=== PATIENT | female | born 1995 | race Caucasian/White ===

== ENCOUNTER 2017-11-02 16:52 | Emergency (ER) | payer BC, SELFPAY ==
[2017-11-02 16:54] VITALS: BP 120/74; PULSE 98; RESP 16; TEMP 36.4; O2SAT 98; BMI 34.3
--- NOTE | 2017-11-02 18:22 | NURSING ---
NO OLD EKGS
[2017-11-02 19:17] VITALS: PULSE 88; RESP 16; O2SAT 98
--- NOTE | 2017-11-02 19:38 | EKG12_ITS ---
Test Reason : CP Blood Pressure : / mmHG Vent. Rate : 085 BPM Atrial Rate : 085 BPM P-R Int : 150 ms QRS Dur : 078 ms QT Int : 348 ms P-R-T Axes : 034 050 006 degrees QTc Int : 414 ms Normal sinus rhythm Normal ECG Confirmed by JUN ROSENBERG MD ([id number]), subeditor MIGUELANGEL REESE ([id number] on 11/03/2017 1:33:41 PM Referred By: SILAS Confirmed By:JUN ROSENBERG MD
--- NOTE | 2017-11-02 19:45 | RAD_ITS ---
STUDY: X-RAY CHEST REASON FOR EXAM: Female, 22 years old. Chest pain TECHNIQUE: Frontal view of the chest COMPARISON: None. FINDINGS: The lungs are clear. There are no pleural effusions. There is no pneumothorax. The heart is normal in size. The visualized osseous structures are within normal limits. RAD/Chest 1 View (Portable) IMPRESSION: No acute thoracic pathology. Electronically Signed: Tan Yoder, at 20:34 EDT Tel , Service support ,
[2017-11-02 19:58] VITALS: O2SAT 96
[2017-11-02 20:40] LABS: Absolute Neutrophil Count 7.2 X10^3/uL (2.0-7.7); Basophil# 0.03 X10^3/uL; Basophil% 0.3 % (0-1); Eosinophil# 0.13 X10^3/uL; Eosinophils% 1.2 % (0-5); Hematocrit 43.1 % (37-47); Hemoglobin 14.2 g/dl (12.0-15.0); Lymphocyte % 27.4 % (19-41); Mean Corp Hgb Conc 32.9 g/gl (32-36); Mean Corpuscular Hgb 28.8 pg (27.0-32.0); Mean Corpuscular Volume 87.4 fL (81-99); Mean Platelet Vol. 9.6 fl (6.2-12.0); Monocyte# 0.79 X10^3/uL; Neutrophil # 7.24 X10^3/uL (2.7-7.7); Platelet Count 324 K/mm3 (150-450); RBC Distribution Width CV 13.7 % (11.6-14.6); RBC Distribution Width SD 43.2 fl (35.1-43.9); Red Blood Count 4.93 M/mm3 (4.2-5.4); White Blood Count 11.3 K/mm3 (4.4-11.0)
[2017-11-02 20:42] LABS: POSITIVE COUNT NO; POSITIVE DIFFERENTIAL NO; POSITIVE MORPHOLOGY NO
[2017-11-02 20:53] LABS: Anion Gap 9 (5-15); BUN 12 mg/dL (7-18); BUN/Creat Ratio 12.8 RATIO (10-20); Calcium,Total 9.6 mg/dL (8.5-10.1); Chloride 103 mmol/L (98-107); Creatinine, Serum 0.94 mg/dL (0.55-1.02); EST Glomerular Filtration Rate 78 mL/min (>60); Est Glom Filt Rate - Afr Amer 94 mL/min (>60); Estimated Creatinine Clearance 76.34 ml/min; Glucose 86 mg/dL (74-106); Potassium 3.9 mmol/L (3.5-5.1); Sodium Level 140 mmol/L (136-145)
[2017-11-02 21:23] VITALS: PULSE 100; RESP 16; O2SAT 97
[2017-11-02 21:37] VITALS: BP 126/78; PULSE 93; RESP 16; O2SAT 98
--- NOTE | 2017-11-02 21:37 | ED.VISSUMM ---
- ER Visit Summary Date of Service: 11/02/17 Chief Complaint: Chest pain History of Present Illness: The patient is a 22 F presenting with chest pain. She states that this started earlier today. Pain has been continuous. It is in her mid chest. It is associated shortness of breath. She denies fever or cough. She has a history of bipolar and ADHD. A week ago her Lexapro was tapered down and she was started on risperidone. She denies any difficulty breathing or swallowing. She denies rash. Denies other complaints. Physical Examination: Vitals are stable. Patient is afebrile. Alert no acute distress. HEENT exam is unremarkable. Neck is supple. Lungs are clear and equal bilaterally. Chest wall tenderness with no crepitus. Heart is regular rate and rhythm. Abdomen is soft nontender nondistended. Extremities are unremarkable. Skin is warm and dry. No focal neurologic deficit. Remainder of exam is unremarkable. Emergency Department Course and Treatment: EKG is sinus rate of 85 with no acute ischemic changes. Chest x-ray shows no acute process. CBC, chemistries unremarkable. Troponin is negative. Patient given Toradol IV with improvement. She is advised to follow-up with her primary care physician. Advised return to ED for worsening complaints. Disposition: Discharge home Impression: Chest wall pain This note was generated with Vyyo dictation software. It may contain incorrect words, spelling, and punctuation that were not noted in review of the chart prior to signing ED Disposition - Plan for ED Patient: Chief Complaint: Shortness of Breath Referrals: Otoniel Nation DO [Primary Care Provider] -
--- NOTE | 2017-11-02 21:39 | ED.DEP ---
ED Disposition - Plan for ED Patient: Chief Complaint: Shortness of Breath Instructions: ED Chest Pain Atypical Unkn Cause Referrals: Otoniel Nation DO [Primary Care Provider] -
== END 2017-11-02 21:46 | disposition home or self-care (01) ==
PROVIDERS: Emergency Provider Emergency Medicine; Family Provider Pediatrics; PCP Pediatrics
DX: R07.89 Other chest pain (principal); F31.9 Bipolar disorder, unspecified; F90.9 Attention-deficit hyperactivity disorder, unspecified type
CPT/HCPCS: 71045; 80048; 84484; 85025; 93005; 99284

== ENCOUNTER → 2018-06-16 09:22 | Outpatient (CLI) | payer BC, SELFPAY ==
--- NOTE | 2018-06-16 09:26 | US_ITS ---
STUDY: ULTRASOUND BREAST - RIGHT REASON FOR EXAM: Female, 22 years old. Right lower outer quadrant lump. TECHNIQUE: Axial and longitudinal images of the RIGHT breast were performed with a high resolution ultrasound transducer. COMPARISON: None. FINDINGS: RIGHT Breast: In the right lower-outer quadrant was sonographically evaluated utilizing various imaging planes. There is no sonographically evident discrete mass, cyst or nodule. There is no fluid collection. IMPRESSION: No sonographically evident abnormality. ASSESSMENT CATEGORY: BIRADS Category 1: Negative. A letter regarding these results will be sent to the patient by the facility within 30 days. Electronically Signed: Olivier Rendon MD at 11:51 EDT , Service support , STUDY: ULTRASOUND BREAST - LEFT REASON FOR EXAM: Female, 22 years old. Bilateral breast lumps in the right lower outer quadrant and left upper outer quadrant. TECHNIQUE: Axial and longitudinal images of the LEFT breast were performed with a high resolution ultrasound transducer. COMPARISON: None. FINDINGS: LEFT Breast: There is a reniform, 0.8 x 0.5 x 0.3 cm hypoechoic focus with hyperechoic central region in the 2:00 position located 8 cm from the nipple. There is no posterior enhancement. There is no posterior shadowing. There appears to be a mild delay vascular echogenic/fatty hilum. This finding is therefore most compatible with an intramammary lymph node. US/Breast Limited Unilateral IMPRESSION: 0.8 cm maximum dimension finding in the 2:00 position left upper outer quadrant most compatible with typically benign appearing intramammary lymph node. ASSESSMENT CATEGORY: BIRADS Category 2: Benign. A letter regarding these results will be sent to the patient by the facility within 30 days. Electronically Signed: Olivier Rendon MD at 11:49 EDT , Service support ,
== END ==
DX: N63.21 Unspecified lump in the left breast, upper outer quadrant (principal); N63.13 Unspecified lump in the right breast, lower outer quadrant
CPT/HCPCS: 76642

== ENCOUNTER → 2019-01-05 10:21 | Outpatient (CLI) | payer BC, SELFPAY ==
--- NOTE | 2019-01-05 17:28 | NEURO ---
NCS and/or EMG Patient Report HPI: Patient is a 23-year-old female who presented with the pain and numbness in both hands, mostly in the fingertips of the fourth and fifth digits. 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 Patient since that time, has been experiencing pain and numbness as well as tingling in her hands and fingertips. This has been going on for last 4 months. Patient has no history of diabetes or neck injury. Physical Exam: Tenderness of both wrist joints noted. Tinel sign slightly positive at both wrists. Slightly decreased sensation to light touch in both hand fingers noted. Findings: 1. Normal nerve conduction studies of right and left median sensory and motor nerves. 2. Normal nerve conduction studies of right and left ulnar sensory and motor nerves. 3. Normal needle examination of the bilateral upper extremities. Impression: Normal nerve conduction studies and EMG of bilateral upper extremities. Recommendation: Clinical correlation and appropriate work-up is recommended
== END ==
DX: M25.531 Pain in right wrist (principal); M25.532 Pain in left wrist
CPT/HCPCS: 95886; 95910

== ENCOUNTER 2019-02-22 16:27 | Outpatient (RCR) | payer BC, SELFPAY ==
--- NOTE | 2019-02-22 18:08 | HP.OTEVAL ---
Patient's Visit Information AMBER WALTERS is a 23 year old F, referred to Occupational Therapy by YOSEPH Arroyo, with a diagnosis of B Carpal Tunnel Syndrome. Date of Evaluation: 02/22/19 Occupational Therapist: Chari Alcocer, MAURICE/Praneeth - Subjective Subjective: Amber Love' noted that she works at the [employer] and noted symptoms of pain started last year prior to . She has been dealing with symptoms for over a year and is very active with use of B UE for joey, arts including ceramics, craving, and painting, and general demands of everyday life. She noted that she did get Nerve Conduction test completed 2018. She noted nerve conduction showed carpal tunnel syndrome. - ADLs Dressing: Bra, Button shirt, Pants, Socks, Shoes Fasteners: Tie shoes, Buttons, Dysart Eating: Bring food to mouth, Use silverware, Cut food Bathing: Handle washcloth & soap, Squeeze shampoo bottle Toileting: Manage clothing Kitchen: Chop with knife, Peel fruits & vegetables, Open jars, Open bottle caps, Lift gallon of milk, Lift saucepan Miscellaneous: Write, Use hand tools, Use power tools, Play musical instrument, Do crafts, Sew, Jami/knit/needlework Comments: also completes pottery, painting, wood craving, and other crafts. Comments: She is R hand dominant. She noted B CTS. - Pain B wrists 4 Pain Intensity Range: 2, 8 - ROM Wrist: flex R 0-80 , L 0-75 ; ext R 0-44 , L 0-46 CMC: WFL MP: WFL IP: WFL Radial Abduction: WFL Palmar Abduction: WFL MP: WFL PIP: WFL DIP: WFL - Strength Data Virtualization Consultant: FLEXED r 71, l 50; EXT r 56, l 51 Lateral Pinch: R 16, L 17 Tripod Pinch: R 15, L 11 Tip-to-Tip Pinch: R 9, L 6 - Sensation Thumb: R 2.83, L 2.83 Index: R 2.83, L 2.83 Middle: R 2.83, L 2.83 Ring: R 2.83, L 2.83 Little: R 2.83, L 2.83 - Nine Hole Peg Right: 22.93 s Left: 32.48 s - Special Tests Tinel's: positive - Quick DASH-Disab of Arm,Shoulder& Hand Quick DASH Score: 43.3325 - Hand/Wrist Evaluation Total Score of Pain & Functional Sections: 33 - Goals Goal:: Bev to increased B patient registration specialist strength by 10-15 lbs to promote increased strength and stability of B hands needed for ADL/IADls 4/5 trials 80% of the time by d/c. Goal:: Bev to exhibit ability to complete pain management techniques for B wrists to manage systoms of pain and carpal tunnel 4/5 trials 80% of the time by d/c. Goal:: Bev to be mod I to completed correct ergonomic placement of hands and wrists during work and joey tasks to promote increased particpation with leisure pursuits and decreased pain symptoms 4/5 trials 80% of the time by d/c. Goal:: Bev to be (I) to complete daily HEP to promote strength, stability, and decreased inflammation of wrists to promote ability to return to PLOF 4/5 trials 80% of the time by d/c. - Rehabilitation General Assessment: Bev completed OT evaluation on this date of 02/22/19. Symptoms first started a year ago. She has increased symptoms post work day and noted also plays computer games. Patient reports having had nerve conduction test completed and results confirmed carpal tunnel syndrome. She does exhibit positive tinels but is hypermobile at the wrist area and would benefit from skilled OT services for strength, stability, pain management, and ergonomic training to decreased symptoms and return to PLOF for ADL/IADls. Rehabilitation Potential: Good - Anticipated Interventions Anticipated Interventions: A/AAROM/PROM, Strengthening, Edema Control, Scar Care, Modalities, Orthoses, Joint Protection/Energy Conservation, Ergonomic Education, Fine Motor Coord/Domenic, ADL Training, Caregiver Training, Home Program - Visit Plan Frequency: 2x /Week Duration: 4 Weeks General Plan: OT to work on strength,stability, ergonomic and positioning, and general ability to return to PLOF with B wrists and hands to promote particpation in ADL/IADLs by d/c. TEXT: Thank you for the opportunity to evaluate your patient. For Medicare and Medicare HMO plans, please review the plan of care and approve it. It will need to be FAXED BACK to us at [phone] for Medicare purposes. Please let me know if there are questions or concerns regarding this plan of care. Physician Signature: Date:
--- NOTE | 2019-04-12 17:28 | HP.OT.NRP ---
HP - Discharge Summary - Patient Information AMBER WALTERS was seen in my office for initial evaluation on 02/22/19. The following Plan of Care was established for this patient: Initial Frequency: 2x /Week Initial Duration: 4 Weeks - Anticipated Interventions Anticipated Interventions: A/AAROM/PROM, Strengthening, Edema Control, Scar Care, Modalities, Orthoses, Joint Protection/Energy Conservation, Ergonomic Education, Fine Motor Coord/Domenic, ADL Training, Caregiver Training, Home Program This patient was last seen in our office 02/22/19. Pertinent comments regarding their Occupational therapy will appear below: Attended evaluation only and did not attend further scheduled appointments. She will be discharged at this time. At this point I will be discontinuing this patient from occupational therapy. I would be happy to see this patient again in the future if found appropriate by the physician. Thank you! Chari Alcocer, OTR/L
== END 2019-02-22 19:00 | disposition home or self-care (01) ==
LOC: OT 16:27
PROVIDERS: Referring Provider Nurse Practitioner Family; Visit Provider Nurse Practitioner Family
DX: M25.532 Pain in left wrist (principal); M25.531 Pain in right wrist
CPT/HCPCS: 97110; 97166

== ENCOUNTER → 2020-03-05 07:58 | Outpatient (CLI) | payer MEDICAID, SELFPAY ==
--- NOTE | 2020-03-05 08:02 | ECHOD_ITS ---
Reason For Study: CP Procedure This was a 2D Doppler, Color Flow transthoracic echocardiogram. The study was technically difficult. Exam performed in department. Left Ventricle Normal LV size. Left ventricular systolic function is normal. The estimated ejection fraction is 55 %. Normal diastology for age. No regional wall motion abnormalities noted. Right Ventricle Normal RV size. Normal systolic function. Atria Normal left atrium. Normal right atrium. Mitral Valve Normal mitral valve. Tricuspid Valve Normal tricuspid valve. Aortic Valve Normal aortic valve. Trisinus/trileaflet aortic valve. Pulmonic Valve Normal pulmonic valve. Great Vessels Normal aortic root. The pulmonary artery is normal size. Normal inferior vena cava. Pericardium/Pleural No pericardial effusion. MMode/2D Measurements & Calculations LVIDd: 3.9 cm IVSd: 0.83 cm LA dimension: 2.6 cm LVIDs: 2.7 cm LVPWd: 0.81 cm FS: 31.0 % LAV(MOD-bp): 25.0 ml LA A4 area: 10.5 cm2 RA A4 area: 10.1 cm2 LAV(MOD-bp) Indexed: 14.0 ml/m2 LAV(MOD-sp2): 26.0 ml LAV(MOD-sp4): 21.0 ml Time Measurements MV dec time: 0.19 sec Doppler Measurements & Calculations MV E max riley: 84.9 cm/sec Lat Peak E' Riley: 13.8 cm/sec Med Peak E' Riley: 13.0 cm/sec MV A max riley: 57.4 cm/sec E/E' lat: 6.1 E/E' med: 6.5 MV E/A: 1.5 MV V2 max: 91.2 cm/sec MV P1/2t max riley: 91.9 cm/sec Ao V2 max: 113.8 cm/sec MV max P.3 mmHg MV P1/2t: 59.0 msec Ao max P.2 mmHg MV V2 mean: 53.2 cm/sec MV dec slope: 456.3 cm/sec2 MV mean P.4 mmHg MVA(P1/2t): 3.7 cm2 MV V2 VTI: 19.2 cm LV V1 max: 100.0 cm/sec PA V2 max: 87.6 cm/sec LV V1 max P.0 mmHg Interpretation Summary Normal LV size. Left ventricular systolic function is normal. The estimated ejection fraction is 55 %. Normal diastology for age. Structurally normal valves. Ordering Physician: Anderson Recinos Referring Physician: Anderson Recinos Performed By: Nolan Leung RCS
== END ==
PROVIDERS: Referring Provider Family Medicine; Visit Provider Family Medicine
DX: R07.9 Chest pain, unspecified (principal)
CPT/HCPCS: 93306

== ENCOUNTER 2020-06-12 06:32 | Outpatient (RCR) | payer MEDICAID, SELFPAY | END 2020-07-22 23:59 | LOC: IMMUN 06:32 | PROVIDERS: Referring Provider Family Medicine; Visit Provider Family Medicine | DX: Z23 Encounter for immunization (principal) | CPT/HCPCS: 0001A; 0002A; 91300 ==

== ENCOUNTER 2022-09-03 15:07 | Emergency (ER) | payer MEDICAID, SELFPAY ==
[2022-09-03] VITALS (8 sets, daily range): BP systolic 95–126; BP diastolic 58–97; PULSE 69–94; RESP 16–20; TEMP 36.1–36.6; O2SAT 98–100; BMI 33.9
--- NOTE | 2022-09-03 15:22 | ED.VIS.FALL ---
HPI HPI - Fall History of Present Illness Chief Complaint: Fall Informant: patient and parent Occured/Mechanism Occurred: Today and Hours Usually ambulates: Without assistance Pain/Injury Pain Location: lower extremity Quality of Pain: Sharp and Stabbing Maximum Severity: Moderate Associated Symptoms Associated Symptoms: Positive for Loss of function and Inability to ambulate; Negative for Parasthesias, Weakness, Loss of consciousness or Amnesia Narrative Narrative: 26-year-old female tripped on the last 2 steps at home when her basement. Landed awkwardly on her left ankle injuring it. Believes it is broken may be dislocated. Denies any other complaints. No LOC. No recent illness or hospitalization. No prior surgery to this ankle. Prior similar symptoms: No Recent Illness/Hospitalization: No PFSH PFSH Medical History ADHD GERD (gastroesophageal reflux disease) Home Medications bupropion HCl 300 mg 24 hr tablet, extended release 300 mg PO DAILY 11/02/17 [History Last Taken Unknown] risperidone 0.25 mg tablet (Risperdal) 0.25 mg PO TID 11/02/17 [History Last Taken Unknown] hydrocodone-acetaminophen 5-325mg 5mg-325mg 1 tab PO Q4H PRN PRN Pain 5 days #20 TABLETS 09/03/22 [Rx Last Taken Unknown] Allergy/AdvReac Type Severity Reaction Status Date / Time No Known Allergies Allergy Verified 11/02/17 16:53 Social History Smoking Status: Never smoker ROS ROS ED ROS Narrative Denies recent illness Review of Systems ROS Unobtainable: Denies due to encephalopathy Constitutional Constitutional ED: Denies chills or fever(s) Eyes Eyes: Denies blurry vision ENT ENT ED: Denies ear pain Cardiovascular Cardiovascular: Denies chest pain Respiratory/Chest Respiratory/Chest: Denies cough Gastrointestinal Gastrointestinal: Denies abdominal pain Genitourinary Genitourinary ED: Denies dysuria Musculoskeletal Musculoskeletal: Denies arthralgias Integumentary Denies abscess Neurologic Neurologic: Denies headache(s) Psychiatric Psychiatric: Denies anxiety Endocrine Endocrinology: Denies polydipsia Hematologic/Lymphatic Hematologic/Lymphatic: Denies easy bleeding Allergic/Immunologic Allergic/Immunologic ED: Denies mouth swelling EXAM Physical Exam Narrative Exam Narrative: 18-year-old female sitting upright in bed. Mom present in room. Vital signs stable afebrile. HEENT exam unremarkable atraumatic. Pupils round reactive light. Nontender. C-spine back nontender. Trachea midline. Lungs clear to auscultation bilaterally. Heart regular rhythm no murmur. Chest wall and ribs nontender. Abdomen soft nontender. Pelvic girdle intact. Moving all 4 extremities. Left ankle is in an air brace by the paramedics. Appears to be deformed. Tender. DP pulse intact. Able to wiggle her toes. Mild abrasion to her anterior aspect of her left ankle. No laceration. Proximal tib-fib, knee, thigh and hip are nontender. Right lower leg is nontender upper extremities are unremarkable. Neurologically she is awake and alert. No focal motor deficits. Left ankle has normal touch sensation. DP pulse. Const Vital Signs: 09/03/22 15:09 09/03/22 15:11 09/03/22 18:59 Temperature 97 F L Temperature Source Temporal Pulse Rate 94 80 Pulse Rate [1 (Initial Baseline)] Pulse Rate [3] Respiratory Rate 18 18 Respiratory Rate [1 (Initial Baseline)] Respiratory Rate [3] Respiratory Effort Normal Non-Labored Blood Pressure 113/78 126/76 H Blood Pressure [1 (Initial Baseline)] Blood Pressure [3] Blood Pressure Mean 89 92 Pulse Ox 99 100 Oxygen Delivery Method Room Air Room Air Room Air Oxygen Delivery Method [1 (Initial Baseline)] Oxygen Delivery Method [3] Oxygen Flow Rate (L/min) [1 (Initial Baseline)] Oxygen Flow Rate (L/min) [3] 09/03/22 19:42 09/03/22 19:59 Temperature 98 F Temperature Source Pulse Rate 77 Pulse Rate [1 (Initial Baseline)] 90 Pulse Rate [3] 74 Respiratory Rate 16 Respiratory Rate [1 (Initial Baseline)] 16 Respiratory Rate [3] 20 H Respiratory Effort Blood Pressure 112/97 H Blood Pressure [1 (Initial Baseline)] 117/71 Blood Pressure [3] 119/74 Blood Pressure Mean Pulse Ox 100 Oxygen Delivery Method Room Air Oxygen Delivery Method [1 (Initial Baseline)] Nasal Cannula Oxygen Delivery Method [3] Nasal Cannula Oxygen Flow Rate (L/min) [1 (Initial Baseline)] 2 Oxygen Flow Rate (L/min) [3] 99 Positive well nourished and well developed; Negative for cachectic, contractures or unkempt General Appearance ED: well developed and NAD; Negative for unkempt, cachectic or contractures Nutritional Appearance: Negative for cachectic HEENT Reports normocephalic atraumatic; Negative for trauma or contusion Eyes PERRL and EOMs intact bilaterally General Eye ED: Negative for pale conjunctiva or scleral icterus Neck full ROM, no lymphadenopathy and supple General: Negative for tenderness Chest Wall inspection of chest normal and palpation of chest normal Resp normal respiratory effort, no retractions and clear to auscultation bilaterally Effort and Inspection: Negative for pain with movement Auscultation: Negative for rales, rhonchi or wheezes Cardio regular rate, regular rhythm, S1 normal heart sound, S2 normal heart sound and no murmurs Rate: Negative for bradycardia or tachycardic Rhythm: Negative for abnormal rhythm Bruits: Negative for other GI non-tender, non-distended and no masses Inspection: Negative for abdominal distention Auscultation: normoactive bowel sounds Palpation: soft; Negative for guarding Back/Spine no CVA tenderness General Back: Negative for CVA tenderness Cervical Spine: Negative for cervical spine tenderness Thoracic Spine / Upper Back: Negative for ROM limited Lumbar Spine / Lower Back: Negative for lumbar spinal tenderness Neuro oriented x3, CN's II-XII intact bilaterally, moves all extremities and no focal motor deficits Sensorium / Orientation: alert, oriented to person and oriented to place; Negative for oriented to time, orientation impaired, confused, lethargic or stuporous Motor Exam: strength 5/5 throughout Psych mental status grossly normal and thought process normal Appearance: Negative for unkempt Attitude: No agitated Mood & Affect: Negative for depressed, anxious or tearful Skin General Skin Exam: Negative for other Lesions: no lesions Rashes: no rashes Trauma: Negative for abrasion or laceration MDM MDM MDM Narrative Medical decision making narrative: 26-year-old tripped and fell down last 2 steps most likely has a left ankle it is fractured and dislocated. X-rays being obtained. IV will be inserted at this time she does not want any pain meds but was offered. Initially patient did not want any medication but then she was having more discomfort was treated with IV morphine and Zofran. History & Record Review Discussion w/independent historian: Patient and Family Radiography Diagnostic Testing: Clinical Impression(s) from Imaging Studies Ankle X-Ray 09/03/22 15:35 IMPRESSION: There is soft tissue swelling. Comminuted oblique fracture of the distal fibula. Question fracture of the posterior malleoli vs projection of the distal fibula fracture over the distal tibia causing this appearance. Medial dislocation of the articulation of the ankle mortise. Electronically Signed: Alvin Riojas MD at 16:13 EDT Reading Location ID and State: [facility] / [place] , Service support , Left ankle x-ray, 3 views, interpreted by myself and the radiologist shows a distal comminuted fibula fracture. Cannot totally rule out a posterior tibia fracture. Disruption of the ankle mortise consistent with dislocation. Interpreted also by the radiologist who agrees. Procedures Lower Extremity Splints Lower Extremity Splint: Orthoglass Splint Fabrication: Fabricated Location: Left Procedural Sedation Left ankle fracture or dislocation. Procedural sedation:: Consent Signed: Yes Any Problems With Anesthesia: No You/Your family experience fever (hyperthermia) w/anesthesia: No Sedation medication: Propofol Dose: 70 Route: IV Total Moderate Sedation Units: 5 Maliampati Score: Class II ASA Classification: I Comment:: Patient had a left ankle fracture dislocation. The ankle mortise was disrupted. She was given a total of 70 of propofol. Manually reduced. Using traction. Placed in a posterior Ortho-Glass well-padded splint. Patient tolerated procedure well. Woke up in 5 minutes. She is being observed post sedation. Post reduction x-ray being obtained. Most recent reduction x-ray of the ankle mortise looks better. There does appear to be a posterior tibial fracture also with a comminuted distal fibula fracture. Discharge Plan Triage Chief Complaint: Fall ED Provider: Anil Kumari Dx/Rx/DC Orders Clinical Impression: Ankle fracture Instructions: ED Ankle Fracture Prescriptions: New hydrocodone-acetaminophen 5-325 mg tablet 1 tab PO Q4H PRN PRN (Reason: Pain) 5 Days Qty: 20 0RF No Action risperidone [Risperdal] 0.25 MG tablet 0.25 mg PO TID bupropion HCl 300 MG tablet extended release 24 hr 300 mg PO DAILY [facility] Referrals: Deng Recinos MD [Med Staff - Active Staff] - As soon as possible [facility] Lees [Primary Care Provider] - Activity Restrictions/Additional Instructions: You had a broken distal fibula and posterior tibia fracture. Plus your ankle was mildly dislocated. No weightbearing. Crutches. No weight on the splint. Keep it dry and clean. Do not get it dirty or wet. Ice and elevate to decrease pain and swelling. Motrin for pain and swelling. Hasty for more severe pain. Do not drink or drive while using the Hasty. Call and follow-up with the orthopedic doctor Deng Recinos or an orthopedic physician of your choice as soon as possible. They need to reevaluate this to determine if they can treated with a cast, surgery or a walking boot. Disposition Disposition: Home, Self Care
--- NOTE | 2022-09-03 15:35 | RAD_ITS ---
STUDY: XR Ankle Min 3 Views REASON FOR EXAM: Female, 26 years old. ANKLE PAIN TECHNIQUE: XR Ankle Min 3 Views LEFT COMPARISON: None. FINDINGS: Normal visualized distal tibia . Comminuted oblique fracture of the distal fibula. Question fracture of the posterior malleoli vs projection of the distal fibula fracture over the distal tibia causing this appearance. Medial dislocation of the articulation of the ankle mortise. The visualized subtalar, talonavicular, calcaneocuboid and tarsal articulations are normal. Normal talus, calcaneus, and tarsal bones. There is soft tissue swelling around the ankle. RAD/Ankle min 3 Views IMPRESSION: There is soft tissue swelling. Comminuted oblique fracture of the distal fibula. Question fracture of the posterior malleoli vs projection of the distal fibula fracture over the distal tibia causing this appearance. Medial dislocation of the articulation of the ankle mortise. Electronically Signed: Alvin Riojas MD at 16:13 EDT ,
[2022-09-03] MEDS: Ondansetron 4 MG/2 ML Vial IV (17:09)
[2022-09-03] MEDS: morphine 8 MG/ML Syringe IV (17:10)
[2022-09-03] MEDS: Propofol 200 MG/20 ML Vial 60 MG IV BOLUS (20:12)
--- NOTE | 2022-09-03 20:55 | RAD_ITS ---
STUDY: XR Ankle Min 3 Views REASON FOR EXAM: Female, 26 years old. Notes post reduction left ankle fracture TECHNIQUE: XR Ankle 3 Views LEFT COMPARISON: study done earlier FINDINGS: Fiberglass splint in place. Comminuted oblique fracture of the distal fibula. There is a fracture of the posterior malleolus. Reduction of the dislocation of the ankle mortise. The visualized subtalar, talonavicular, calcaneocuboid and tarsal articulations are normal. Normal talus, calcaneus, and tarsal bones. There is soft tissue swelling around the ankle. RAD/Ankle min 3 Views IMPRESSION: There is soft tissue swelling. Comminuted oblique fracture of the distal fibula fragments have increased in displacement. Stable displaced fracture of the posterior malleolus. Successful reduction. Electronically Signed: Alvin Riojas MD at 21:11 EDT ,
== END 2022-09-03 21:58 | disposition home or self-care (01) ==
PROVIDERS: Emergency Provider Emergency Medicine; Visit Provider Emergency Medicine
DX: S82.892A Other fracture of left lower leg, initial encounter for closed fracture (principal); W19.XXXA Unspecified fall, initial encounter
CPT/HCPCS: 73610; 96374; 96375; 99285; J7030; A4216; J2405

== ENCOUNTER → 2022-09-08 | Outpatient (CLI) | payer MEDICAID, SELFPAY ==
[2022-09-08 11:24] LABS: Absolute Lymphocyte Count 2.03 X10^3/uL (0.83-4.51); Absolute Neutrophil Count 6.7 X10^3/uL (2.0-7.7); Basophil# 0.04 X10^3/uL; Basophil% 0.4 % (0-1); Eosinophil# 0.13 X10^3/uL; Eosinophils% 1.4 % (0-5); Hematocrit 41.4 % (37-47); Hemoglobin 13.6 g/dL (12.0-15.0); Lymphocyte # 2.03 X10^3/ul (0.83-4.51); Lymphocyte % 21.2 % (19-41); Mean Corp Hgb Conc 32.9 g/dL (32-36); Mean Corpuscular Hgb 29.1 pg (27.0-32.0); Mean Corpuscular Volume 88.5 fL (81-99); Mean Platelet Vol. 9.5 fl (6.2-12.0); Monocyte# 0.63 X10^3/uL; Monocyte% 6.6 % (0-10); NRBC Flagged by Analyzer 0 % (0-5); Neutrophil # 6.69 X10^3/uL (2.7-7.7); Neutrophil % 69.9 % (47-70); Platelet Count 329 K/mm3 (150-450); RBC Distribution Width SD 42.4 fl (35.1-43.9); Red Blood Count 4.68 M/mm3 (4.2-5.4); White Blood Count 9.6 K/mm3 (4.4-11.0)
[2022-09-08 12:11] LABS: ALB/GLOB Ratio 1.1 RATIO (0.9-2.4); AST(SGOT) 25 U/L (15-37); Alanine Aminotransfer ALT/SGPT 107 U/L (13-56); Alkaline Phosphatase 122 U/L (45-117); Anion Gap 4 (5-15); BUN 10 mg/dL (7-18); BUN/Creat Ratio 10.5 RATIO (10-20); Calcium,Total 9.2 mg/dL (8.5-10.1); Chloride 109 mmol/L (98-107); Creatinine, Serum 0.95 mg/dL (0.55-1.02); EST Glomerular Filtration Rate 74 mL/min (>60); Est Glom Filt Rate - Afr Amer 90 mL/min (>60); Globulin 3.7 g/dL (2.2-4.2); Glucose 83 mg/dL (74-106); Potassium 3.9 mmol/L (3.5-5.1); Protein, Total 7.7 g/dL (6.4-8.2); Sodium Level 141 mmol/L (136-145)
== END | disposition home or self-care (01) ==
DX: Z78.9 Other specified health status (principal)
CPT/HCPCS: 36415; 80053; 85025

== ENCOUNTER 2022-09-10 11:05 | Day surgery (SDC) | payer MEDICAID, SELFPAY ==
[2022-09-10] VITALS (9 sets, daily range): BP systolic 104–134; BP diastolic 57–77; PULSE 74–99; RESP 14–16; TEMP 36.2–36.9; O2SAT 91–100; BMI 32.4
--- NOTE | 2022-09-10 11:25 | PCM.DC ---
Discharge Instructions Diet Discharge Diet: No restrictions Activity Discharge Activity: May Not Drive, May Shower (Please use cast bag covering to keep dressings clean, dry, and intact to the left foot) and Use Walker (Please use walker to remain nonweightbearing to the left lower extremity) Weight Bearing Status: No weight bearing (Please remain nonweightbearing to left lower extremity with assistance of walker) Keep extremity elevated above heart level: Left Leg (Please elevate left leg at all times of rest for postoperative edema control) Dressing / Incision Call your doctor if you observe: Fever of 101 or Higher, Shortness of breath, Chest pain, Calf discomfort and Uncontrolled pain Change Dressing in: do not change dressing Remove Dressing in: leave in place till F/U (Leave dressings clean, dry, and intact to the left lower extremity. Physician will change dressing at first postop appointment) Cleanse incision/area with: Do not get Incision Wet and Keep Dressing Clean & Dry Follow Up Care Please Follow Up With: Mo Camejo DPM When: Patient has first postoperative appointment with me in office next week Test Results: Test results from this visit will be discussed in further detail at your follow-up appointment, if applicable. Discharge Plan Admission Attending Provider: Mo Camejo [facility] Orders/Prescriptions Prescriptions: New oxycodone-acetaminophen 5-325 mg tablet 1 tab PO Q8H PRN (Reason: pain) 7 Days Qty: 28 0RF doxycycline hyclate 100 mg capsule 100 mg PO DAILY Qty: 10 0RF aspirin 325 mg tablet 325 mg PO DAILY Qty: 20 0RF No Action buspirone 10 mg tablet 15 mg PO BID Patient Comments: TAKE 1 TABLET BY MOUTH TWICE DAILY famotidine 20 mg tablet 20 mg PO Q12H venlafaxine 37.5 mg capsule,extended release 24hr 75 mg PO DAILY Patient Comments: TAKE 1 CAPSULE BY MOUTH ONCE DAILY doxepin 6 mg tablet 6 mg PO DAILY fexofenadine [Elinor Allergy] 180 mg tablet 180 mg PO DAILY [facility] - Disposition Disposition (needs filled in before D/C Order can be placed): Home, Self Care
[2022-09-10] MEDS: Lactated Ringers 1,000 ML 15 ML IV (11:53)
[2022-09-10 12:18] LABS: Internal QC Validated? YES +Cl - CLEAR BKGD; Pregnancy, Serum, hCG Quali. NEGATIVE Negative
--- NOTE | 2022-09-10 13:30 | RAD_ITS ---
STUDY: Fluoroscopy LEFT ANKLE REASON FOR EXAM: Female, 26 years old. FX TECHNIQUE: At least 6 view(s) of the ankle. COMPARISON: September 03, 2022 FINDINGS: This is a fluoroscopic image demonstrating an open reduction internal fixation of the fibula in progress. RAD/Ankle 2 Views IMPRESSION: As was opened Reduction internal fixation of the left Ankle with improved alignment side plate and cortical screws. Electronically Signed: Radha Nunez MD at 5:33 EDT ,
[2022-09-10] MEDS: Cefazolin 2 GM in 0.9% Normal Saline 100 ML IV (13:33)
--- NOTE | 2022-09-10 17:15 | RAD_ITS ---
STUDY: X-RAY - LEFT ANKLE REASON FOR EXAM: Female, 26 years old. Postoperative ORIF ankle TECHNIQUE: 3 view(s) of the ankle. COMPARISON: 09/03/2022 FINDINGS: Interval open reduction internal fixation of fracture of the distal fibula with a screw and lateral plate and screws. Normal medial and lateral malleoli. Normal tibiotalar articulation and ankle mortise. Normal visualized talus and calcaneus. The visualized subtalar, talonavicular, calcaneocuboid and tarsal articulations are normal. Fiberglas cast obscures soft tissue and bony detail. RAD/Ankle min 3 Views IMPRESSION: Interval open reduction internal fixation of fracture of the distal fibula. Electronically Signed: Ad Gallardo MD at 10:04 EDT ,
--- NOTE | 2022-09-10 17:38 | OP.PCM_ITS ---
Problems Associated Problem List Diagnoses (1) Ankle dislocation: (2) Displaced trimalleolar fracture of left lower leg, initial encounter for closed fracture: (3) Tear of deltoid ligament of left ankle: Report of Operation Date of Procedure: 09/10/22 Pre-Operative Diagnosis: 1. Displaced trimalleolar fracture left ankle 2. Acute deltoid ligament tear left ankle 3. Pain left lower leg Post-Operative Diagnosis: 1. Displaced trimalleolar fracture left ankle 2. Acute deltoid ligament tear left ankle 3. Pain left lower leg Surgery/Procedure Performed:: 1. ORIF trimalleolar fracture left ankle 2. Repair of acute deltoid ligament tear left ankle Description of Surgical Findings:: See operative note for findings Surgeon: Mo Camejo building materials sales attendant: Isak Hernández DPM PGY-3 Type of Anesthesia: Block,Regional (Popliteal block) and General Specimen's removed: None Drains: None Estimated Blood Loss (mL): < 10mL Description of Procedure: HPI/indication: Patient is a 26-year-old female who was going down steps in her house on 09/03/2022 missing the last step rolling the left ankle. She states she thought it was a sprain however when she looked at the ankle to get ready to get up off the floor she noticed the ankle was sideways and deformed. She was brought to [facility] ED where radiographs were obtained of the right ankle confirming displaced trimalleolar ankle fracture. She did undergo closed reduction with posterior splinting of the left ankle with postreduction films obtained. She was referred to the orthopedic group who referred to podiatry for surgical correction. She was seen in office on 09/08/2022 where I discussed surgical intervention of ORIF of the displaced trimalleolar ankle fracture. I reviewed radiographic imaging from [facility] on 09/03/2022 and discussed this with her and her mother. Discussed surgical procedure in great detail. Discussed rationale of the procedure in great detail. Discussed all risks and complications of the procedure in great detail. Discussed the risks and complications include but are not limited to the following: Pain, continued pain, complex regional pain syndrome, infection, delayed healing/nonhealing, numbness/neuritis, overcorrection/under correction, need for additional surgery, persistent symptoms of pain, swelling, scar tissue, poor cosmetic result, symptomatic hardware, hardware failure, difficulty wearing shoes, inability to wear shoe, deformity, continued deformity, postoperative arthritis, addiction to pain medication, allergic reaction, blood clot, loss of function, loss of limb, loss of life. Patient voiced understanding of these and was able to repeat these back. Discussed all alternative options in detail. Did discuss with her the instability of the fracture does necessitate surgical intervention. Patient and mother are in agreement with this. Patient wishes to proceed forward with surgical intervention. No guarantees were made. No prom ises were given. Patient did sign consent form freely. Patient was cleared for surgical intervention by her PCP. I reviewed medical clearance prior to surgical intervention. All diagnostic data was reviewed prior to surgical intervention. Operative limb was signed prior to entering the OR. She was scheduled to undergo ORIF of displaced trimalleolar fracture of the left ankle with repair of the acute deltoid ligament tear of the left ankle at [facility] on 09/10/2022. Procedure: Under mild sedation patient was brought to into the operating room placed on the table in the supine position. Following induction of general anesthesia a pneumatic thigh tourniquet was placed about the patient's left thigh. A blanket bump was then placed under the left hip. And a blanket bump was then also placed under the left lower leg and secured to the table. The left foot and leg were then scrubbed, prepped, and draped in the usual aseptic manner. Under fluoroscopy all anatomic landmarks were marked with incision placement marked out guided by assistance of fluoroscopy. An Esmarch bandage was utilized to exsanguinate the left lower extremity and the left leg was elevated and the pneumatic thigh tourniquet was inflated to 300 mmHg. At this time fluoroscopy was utilized to view fracture in multiple planes. Next a linear incision was made overlying the fibula and carried proximal to distal utilizing a #15 blade. Incision was deepened utilizing sharp and blunt dissection. Care was taken to identify and retract all vital neurovascular structures and tendinous structures. These were protected throughout the duration of this case. Upon deepening of the incision there was a large amount of hematoma at the fracture site which was debrided utilizing a rongeur and the site was copiously irrigated with normal sterile saline. The oblique fracture was identified and noted to be unstable with comminution. The fracture fragments were reduced with a pointed reduction clamp and reduction confirmed in multiple fluoroscopic views. Next following AO principles a 3.5 x 34 mm cortical interfragmentary lag screw was placed across the fracture site. The pointed reduction clamp was removed and fracture fragment noted to be reduced. Reduction confirmed in multiple fluoroscopic views. Next proximal to this another fracture fragment was reduced with a pointed reduction clamp and an anatomic posterior plate was applied to the distal fibula and temporarily fixated with 2 olive wires. Position of the plate was confirmed in multiple fluoroscopic views. Next following AO principles the 4 distal holes of the plate were filled with 3.0 locking screws measuring 10 mm, 12 mm, 12 mm, and 12 mm. Next the distal olive wire was removed and following AO principles a 3.5 x 14 mm locking screw was inserted. The hole proximal to the oblique fracture was filled following AO principles with a 3.5 x 14 mm locking screw. The next hole proximal to this was filled with a 3.5 x 14 mm cortical screw. In the next hole proximal to the cortical screw was filled following AO principles with a 3.5 x 14 mm locking screw. Placed in between the 2 most proximal screws a 3.0 x 16 mm cortical lag screw was placed anterior to posterior reducing a piece of the proximal fibula. Following this reduction was confirmed in multiple fluoroscopic views and deemed excellent fixation. Next utilizing a dental pick a hook test was performed under live fluoroscopic view noted to be no instability of the syndesmosis. Next under live fluoroscopic view lateral stress test was applied to the ankle with no syndesmotic instability noted. On lateral fluoroscopic view following reduction of fibular fracture posterior malleolus fracture was reduced via ligamentotaxis in anatomic position. The site was then flushed with copious amounts of normal sterile saline. Next attention was directed to the medial ankle where under live fluoroscopic view and medial stress test was performed noting instability of the deltoid ligament. A linear incision was made over the medial malleolus extending distally utilizing a #15 blade. Incision was deepened through sharp and blunt dissection. Care was taken to identify and retract all vital neurovascular structures. The deltoid ligament was visualized and noted to have superficial deltoid disrupted with deep fibers intact. An Arthrex deltoid internal brace repair system was utilized to reconstruct the deltoid ligament. A 4.75 mm swivel lock was inserted into the medial malleolus and to 3.0 knotless suture tack anchors were inserted on both sides of the swivel lock. Knotless anchors were utilized to reconstruct the deltoid ligament and the 3.5 mm swivel lock was anchored into the medial talus. During repair foot was placed into neutral with slight inversion during tightening of the fiber tape/internal brace. Following deployment of the internal brace under live fluoroscopy a medial stress test was again performed confirming reduction and repair of the deltoid ligament with no medial instability noted. Final fluoroscopic images were obtained in multiple views confirming reduction of fracture fragments and hoahaoism of the ankle joint to anatomic position. The site was then flushed with copious amounts of normal sterile saline. At this time the pneumatic thigh tourniquet was deflated and a prompt hyperemic response was noted to the digits of the left foot. Medial incision deep layer was repaired with 2-0 Vicryl. Subcutaneous layer was closed with 4-0 Monocryl. Skin was reapproximated with 3-0 Prolene in simple interrupted fashion. Lateral incision deep layer was closed with 4-0 and 2-0 Vicryl. Subcutaneous layer closed with 4-0 Monocryl. Skin reapproximated with 3-0 Prolene in simple interrupted fashion. Incision sites dressed with Betadine soaked Adaptic, 4 x 4 gauze, Kerlix, Webril cast padding, 4 inch Ghassan wrap, 6 inch Ghassan wrap and modified Anglin compression fashion. A well molded and well-padded sugar-tong cast was applied to the left lower extremity and anchored with a 4 inch Ghassan wrap and 6 inch Ghassan wrap. The patient tolerated the procedure and anesthesia well and was transported to PACU with vital signs stable and vascular status intact to the left foot. Postoperative images were obtained in PACU and reviewed prior to leaving. While in PACU anesthesia team performed a popliteal block for postoperative pain control. She is to remain nonweightbearing to the left lower extremity with assistance of walker. She is to keep dressings clean, dry, and intact to the left foot and utilize cast bag when showering. She is to continue to elevate left lower extremity at all times of rest for postoperative edema control. These instructions were outlined among others in her discharge instructions. She is to follow all postoperative instructions. She has first postoperative appointment with me in office early next week. Grafts/Implants Used: 6-hole anatomic posterior plate x 10 screw; deltoid internal brace Complications None Admit VTE Documentation VTE Present on Admission: No VTE Mechan Device Prophylaxis: SCD's VTE Pharm Prophylaxis ordered?: Yes
== END 2022-09-10 19:08 | disposition home or self-care (01) ==
LOC: SDC 11:07 → AC 11:08
PROVIDERS: Anesthesiology; Referring Provider Student in an Organized Health Care Education/Training Program; Visit Provider Student in an Organized Health Care Education/Training Program
PROC: (CPT 27822; principal; 2022-09-10 12:40)
DX: S82.852A Displaced trimalleolar fracture of left lower leg, initial encounter for closed fracture (principal); S93.422A Sprain of deltoid ligament of left ankle, initial encounter; F90.9 Attention-deficit hyperactivity disorder, unspecified type; F41.9 Anxiety disorder, unspecified; Z79.899 Other long term (current) drug therapy; W10.9XXA Fall (on) (from) unspecified stairs and steps, initial encounter
CPT/HCPCS: 27822; 64445; 27695; 01480; 73600; 73610; 76000; 84703; C1713; J7120; J2405

== ENCOUNTER 2022-11-04 13:33 | Outpatient (CLI) | payer MEDICAID, SELFPAY ==
[2022-11-08 05:07] LABS: QNTFERON TB Mitogen Value > 10.00 IU/mL (.); QNTFERON TB Nil Value 0.09 IU/mL (.); QNTIFERON TB Positive Criteria Negative (Negative)
== END 2022-11-04 23:59 | disposition home or self-care (01) ==
LOC: MTLAB 13:34
PROVIDERS: Visit Provider Physician Assistant Surgical
DX: Z11.1 Encounter for screening for respiratory tuberculosis (principal)
CPT/HCPCS: 36415; 86480

== ENCOUNTER 2022-11-09 08:38 | Outpatient (RCR) | payer MEDICAID, SELFPAY ==
--- NOTE | 2022-11-09 09:41 | HP.PTEVAL ---
Patient's Visit Information Visit Information Visit Information: AMBER WALTERS is a 27 year old F referred to Physical Therapy by Dr. Mo Camejo DPM with a diagnosis of Trimalleolar Fracture. Date of Evaluation: 11/09/22 Physical Therapist: Elisha Munson DPT Visit Plan Frequency: 2x /Week Duration: 4 Weeks Plan: Trimalleolar Fracture with ORIF September 11- Focus on LE ROM, Strength, Proprioception and Functional Mobility- Edema Control HEP Given IE: ankle ROM, SLS *Be aware of billing codes approved by insurance Subjective Subjective: Patient reports that she fell and missed the last step and left trimalleolar fracture- surgery was September [address] Camejo. She was in a splint and then in a boot and was 2 weeks ago was told she could be in a shoe and released to go back to work. She was released back to work every other day and as a runner without a brace. 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 She is suppose to work tomorrow and she is suppose to run tomorrow but stand again on Tuesday. She has a written note from her MD. Pain in the last couple of days 6-7/10- when she is standing still drops to a 4/10 when she is moving. The ankle is still swollen. She is wearing compression stockings at work. Best: 0/10 when she elevates. Describes the pain as dull and achy- standing still its sharp and stabbing. No N/T in the toes. Pain is located in the ankle- no pain that radiates. No cramping. Sleep: not disturbed. She is walking around the house but not doing anything specific exercises for the ankle-she is not using ice anymore. PMHx/Meds: no changes since last visit to [facility] in chart. Objective Objective: Posture: FH, RS- can correct but does not maintain Gait: antalgic- decreased stance on the left LE- poor heel/toe- toes turned out HR/TR: able but decreased TR SLS: weight shift but unable to SLS Edema: Figure 8: 55.5 cm Malls: 29.5 Mets: 22 cm ROM: DF: 10 degrees from neutral, PF: 30 degrees, Ever: 30 degrees Inv: 30 degrees Strength: 4+/5 in avail range Flex: HS: moderate, Gastroc: severe, Soleus: severe Balance/Special Test Scores Lower Extremity Functional Score: 47 Goals Goal 1:: Patient will be I with HEP and progression Goal Time Frame: 4-6 Weeks Goal 2:: Patient will demo equal girth bilateral ankles with figure 8 measurement Goal Time Frame: 4-6 Weeks Goal 3:: Patient will SLS for 15 sec without LOB Goal Time Frame: 4-6 Weeks Goal 4:: Patient will ambulate >300 feet with a normalized gait pattern Goal Time Frame: 4-6 Weeks Goal 5:: Patient will report 80% improvement Goal Time Frame: 4-6 Weeks Rehabilitation Potential Physical Therapy Diagnosis: Patient presents with hypomobility s/p ORIF of a Trimallolar Fx 09/11- she has decreased LE strength/stabilization, ROM, proprioception, flex and muscular endurance leading to abnormal gait, balance and decreased ability to participate in ADLs and work related tasks. Rehabilitation Potential: Good Anticipated Interventions Patient/Client Instruction: Educate patient on: Benefits of Fitness Program Therapeutic Exercise to Include: Strength training, Endurance training, Balance training, Coordination, Agility training, Body mechanics, Postural training, Flexibilty training, Gait and locomotor training, Neuromotor development, Passive ROM, Active ROM, Dynamic Lumbar Stabilization and Scapular Strength/Stabilization For the Purpose of:: To improve muscle performance and motor function Functional Training to Include: Gait training Manual Therapy Techniques to Include: Soft tissue mobilization TENS: Yes Cryotherapy (ice pack, ice massage): Yes Thermo therapy (hot pack): Yes Ultrasound (thermal/non thermal): No Vasopneumatic device: Yes Text: Thank you for the opportunity to evaluate your patient. For Medicare and Medicare HMO plans, please review the plan of care and approve it. It will need to be FAXED BACK to us at [phone] for Medicare purposes. For Medicare only, by signing this I certify the plan of care. Please let me know if there are questions or concerns regarding this plan of care. Physician Signature: Date:
--- NOTE | 2022-12-27 07:19 | HP.PT.NRP ---
Patient Information Patient Information: AMBER WALTERS was seen in my office for initial evaluation on 11/09/22. The following Plan of Care was established for this patient: POC Established Initial Frequency: 2x /Week Initial Duration: 4 Weeks Anticipated Interventions Patient/Client Instruction: Educate patient on: Benefits of Fitness Program Therapeutic Exercise to Include: Strength training, Endurance training, Balance training, Coordination, Agility training, Body mechanics, Postural training, Flexibilty training, Gait and locomotor training, Neuromotor development, Passive ROM, Active ROM, Dynamic Lumbar Stabilization and Scapular Strength/Stabilization For the Purpose of:: To improve muscle performance and motor function Functional Training to Include: Gait training Manual Therapy Techniques to Include: Soft tissue mobilization TENS: Yes Cryotherapy (ice pack, ice massage): Yes Thermo therapy (hot pack): Yes Ultrasound (thermal/non thermal): No Vasopneumatic device: Yes Last Seen Last Seen: This patient was last seen in our office . Pertinent comments regarding their Physical therapy will appear below: Patient has reported that she has started PT elsewhere, appropriate to be d/c At this point I will be discontinuing this patient from physical therapy. I would be happy to see this patient again in the future if found appropriate by the physician. Thank you! Elisha Munson, DPT Balance/Gait/Functional tests Balance/Special Test Scores Lower Extremity Functional Score: 47
== END 2022-11-09 19:00 | disposition home or self-care (01) ==
LOC: PT 08:38
PROVIDERS: Referring Provider Student in an Organized Health Care Education/Training Program; Visit Provider Student in an Organized Health Care Education/Training Program
DX: S82.852D Displaced trimalleolar fracture of left lower leg, subsequent encounter for closed fracture with routine healing (principal)
CPT/HCPCS: 97162

== ENCOUNTER → 2024-12-24 | Outpatient (CLI) | payer MEDICAID, SELFPAY ==
[2024-12-24 12:03] LABS: Hematocrit 41.4 % (37-47); Hemoglobin 13.7 g/dL (12.0-15.0); Immature Granulocytes Count 0.020 X10^3/uL (0.0-0.0); Mean Corp Hgb Conc 33.1 g/dL (32-36); Mean Corpuscular Volume 89.2 fL (81-99); Mean Platelet Vol. 9.8 fl (6.2-12.0); NRBC Flagged by Analyzer 0 % (0-5); Platelet Count 291 K/mm3 (150-450); RBC Distribution Width CV 12.2 % (11.6-14.6); RBC Distribution Width SD 40.1 fl (35.1-43.9); Red Blood Count 4.64 M/mm3 (4.2-5.4); White Blood Count 8.3 K/mm3 (4.4-11.0)
[2024-12-24 12:47] LABS: AST(SGOT) 13 U/L (<=31); Alanine Aminotransfer ALT/SGPT 14 U/L (<=34); Albumin, Serum 4.4 g/dL (3.5-5.0); Alkaline Phosphatase 58 U/L (35-104); Anion Gap 11 (5-15); BUN 10 mg/dL (4-19); BUN/Creat Ratio 11.0 RATIO (10-20); Calcium,Total 9.0 mg/dL (7.6-11.0); Carbon Dioxide 22.7 mmol/L (21.0-32.0); Chloride 104 mmol/L (98-108); Cholesterol 199 mg/dL (<=200); Globulin 2.9 g/dL (2.2-4.2); Glucose 94 mg/dL (70-99); Low Density Lipoprotein Calc. 123 mg/dL; Potassium 3.9 mmol/L (3.3-5.1); Triglycerides 82 mg/dL; Very Low Density Lipoprotein 16 mg/dL (5-40); Vitamin D,25 Hydroxy 40.7 ng/mL (30-100); cholesterol:hdl ratio screen 3.25
== END | disposition home or self-care (01) ==
LOC: VSLAB 08:02
PROVIDERS: Referring Provider Nurse Practitioner Family; Visit Provider Nurse Practitioner Family
DX: E66.9 Obesity, unspecified (principal); E55.9 Vitamin D deficiency, unspecified; Z13.1 Encounter for screening for diabetes mellitus; Z13.220 Encounter for screening for lipoid disorders
CPT/HCPCS: 36415; 80053; 80061; 82306; 83036; 84443; 85025

== ENCOUNTER 2025-01-11 07:36 | Emergency (ER) | payer MEDICAID, SELFPAY ==
[2025-01-11 07:37] VITALS: BP 119/70; PULSE 97; RESP 16; TEMP 36.6; O2SAT 100; BMI 27.3
--- NOTE | 2025-01-11 07:53 | ED.VIS.LOWEX ---
HPI History of Present Illness HPI Narrative: Patient presents with an injury to her right ankle that occurred last night. Patient states she was walking and inverted her ankle. Patient states she felt a pop. Patient states her pain is burning and stabbing. Patient states it is worse with any weightbearing. Patient states it is better with rest. Patient denies any paresthesias or weakness. Patient denies any other injuries. Chief Complaint: Lower Extremity Injury Informant: patient Occured/Mechanism Comment: Inversion injury Onset/Context/Timing Onset: Yesterday Context: Sudden Onset Timing: Continuous Quality of Pain: Burning and Stabbing Location: Right ankle Worsened by: Weightbearing Relieved by: Rest Associated Symptoms Associated Symptoms: Negative for Parasthesia, Weakness or Loss of Funtion [facility]SH [facility] Medical History (Updated 01/11/25 @ 08:[address] Yahir You, ) Wears glasses Anxiety Non-smoker History of echocardiogram ADHD GERD (gastroesophageal reflux disease) Home Medications ?Medication ?Instructions ?Recorded ?Last Taken ?Type buspirone 10 mg tablet 15 mg PO BID 09/08/22 09/10/22 History doxepin 6 mg tablet 6 mg PO DAILY 09/08/22 Unknown History famotidine 20 mg tablet 20 mg PO Q12H 09/08/22 09/10/22 History fexofenadine 180 mg tablet 180 mg PO DAILY 09/08/22 Unknown History (Elinor Allergy) venlafaxine 37.5 mg 75 mg PO DAILY 09/08/22 09/10/22 History capsule,extended release 24 hr aspirin 325 mg tablet 325 mg PO DAILY #20 tabs 09/10/22 Unknown Rx doxycycline hyclate 100 mg capsule 100 mg PO DAILY #10 caps 09/10/22 Unknown Rx oxycodone-acetaminophen 5 mg-325 1 tab PO Q8H PRN pain 7 days #28 09/10/22 Unknown Rx mg tablet tabs Allergy/AdvReac Type Severity Reaction Status Date / Time strawberry (strawberries) Allergy Rash Verified 01/11/25 07:39 Surgical History (Updated 01/11/25 @ 07:[address] Yahir You, DO) Status post ORIF of fracture of ankle History of wisdom tooth extraction Social History Smoking Status: Never smoker ROS ROS ED Constitutional Constitutional ED: Denies chills or fever(s) Eyes Eyes: Denies blurry vision or change in vision ENT ENT ED: Denies rhinorrhea or sore throat Cardiovascular Cardiovascular: Denies chest pain or palpitations Respiratory/Chest Respiratory/Chest: Denies cough or dyspnea Gastrointestinal Gastrointestinal: Denies nausea or vomiting Genitourinary Genitourinary ED: Denies dysuria or hematuria Musculoskeletal Musculoskeletal: Denies back pain or neck pain Integumentary Denies abscess or rash Neurologic Neurologic: Denies headache(s) or weakness Allergic/Immunologic Allergic/Immunologic ED: Denies mouth swelling or urticaria EXAM Physical Exam Const Vital Signs: 01/11/25 07:37 Temperature 97.9 F Temperature Source Oral Pulse Rate 97 Respiratory Rate 16 Blood Pressure 119/70 Blood Pressure Mean 86 Pulse Ox 100 Oxygen Delivery Method Room Air Positive well nourished and well developed General Appearance ED: well developed and NAD HEENT Reports moist mucous membranes Neck full ROM and supple Extremity Extremity Narrative: There is tenderness of the lateral aspect of the right ankle. There is no tenderness over the proximal fibula. There is no tenderness over the fifth metatarsal. There is no edema or ecchymosis. Range of motion was limited in all motions of the right ankle secondary to pain. Strength is 5/5 bilaterally in the lower extremities. There are no sensory deficits noted. There is good pedal pulse palpated. Capillary refill is less than 2 seconds in all digits. Neuro oriented x3, CN's II-XII intact bilaterally, moves all extremities and no sensory deficits noted Sensorium / Orientation: alert Motor Exam: strength 5/5 throughout Psych mental status grossly normal MDM MDM MDM Narrative Medical decision making narrative: Differential diagnosis includes fracture, sprain, and contusion. X-rays of the right ankle will be obtained to assess for fracture. Radiography Diagnostic Testing: Clinical Impression(s) from Imaging Studies Ankle X-Ray 01/11/25 07:57 IMPRESSION: No acute finding. Reading Location: [id number] X-rays of the right ankle were obtained. There are 4 views. On my independent interpretation, there is no acute fracture or dislocation noted. Radiologist also interpreted the x-rays and agrees. Treatment and Re-Evaluation Narrative: Patient was given a dose of [place] here. Patient was advised of her findings. Patient was given an Aircast. Patient was instructed to ice and elevate the right ankle. Patient was instructed to take Tylenol or ibuprofen as needed for pain. Patient was instructed to follow-up with her primary care physician in 5 to 7 days. Patient understood and was agreeable with the plan. All questions were answered. Discharge Plan Triage Chief Complaint: Lower Extremity Injury ED Provider: Yahir You Dx/Rx/DC Orders Clinical Impression: Right ankle sprain, Anxiety Instructions: ED Ankle Sprain (Adult) Prescriptions: No Action buspirone 10 mg tablet 15 mg PO BID Patient Comments: TAKE 1 TABLET BY MOUTH TWICE DAILY famotidine 20 mg tablet 20 mg PO Q12H venlafaxine 37.5 mg capsule,extended release 24hr 75 mg PO DAILY Patient Comments: TAKE 1 CAPSULE BY MOUTH ONCE DAILY doxepin 6 mg tablet 6 mg PO DAILY fexofenadine [Elinor Allergy] 180 mg tablet 180 mg PO DAILY oxycodone-acetaminophen 5-325 mg tablet 1 tab PO Q8H PRN (Reason: pain) 7 Days Qty: 28 0RF doxycycline hyclate 100 mg capsule 100 mg PO DAILY Qty: 10 0RF aspirin 325 mg tablet 325 mg PO DAILY Qty: 20 0RF Primary Care Provider: Renetta Argueta Referrals: Renetta Argueta NP-C [Primary Care Provider, Family Practice] - 5-7 Days [facility] [Non-Staff, Medical] Print Language: Polish Disposition Disposition: Home, Self Care
--- NOTE | 2025-01-11 07:57 | RAD_ITS ---
PROCEDURE: ANKLE MIN 3 VIEWS 01/11/2025 REASON FOR EXAM: INJURY/PAIN TECHNIQUE: Procedure Code: RADANK Modality: DX Procedure: ANKLE MIN 3 VIEWS Laterality: Right COMPARISON: None FINDINGS: Bones: No fracture Joints: Normal alignment Soft tissues: Soft tissues are unremarkable. Other: No foreign body RAD/Ankle min 3 Views IMPRESSION: No acute finding. Reading Location: [id number]
[2025-01-11] MEDS: HYDROcodone Bitartrate/Apap 5/325 Tablet PO (08:02)
--- OUTSIDE RECORDS SUMMARY | 2025-01-11 08:19 | XMS RPT_ITS | CCD ---
Author Organization [facility] Inform ion Partnership [facility] [place] [facility] Care Team Providers Care Meat Packager Name Role Phone [facility], [facility] Primary Care Pro vider [facility], [place] [facility] Referring Provid er Jake CLAYTON, FORREST Villarreal Attending Provider [phone] MECHANIC, Janet Primary Care Provider [phone] JANET BALLESTEROS Primary Care Unavailable JANET CANDELARIO Attending Unavailable [facility], [facility] Unavailable Renetta Argueta Referring Unavailable Renetta Argueta Attending Unavailable Allergies Allergy Classification Reported Allergen(s) Allergy Type Date of Onset Reaction(s) Facility (3 sources) [place]; Translations: [FEATHERS] Drug Allergy 05-26-[address] [facility] (3 sources) [place]; Translations: [STRAWBERRIES] Food Allergy 04-12-2019 GI Upset [facility] Medications Current Medications Medication Drug Class(es) Dates Sig (Normalized) Sig (Original) acetaminophen 325 mg / oxyCODONE hydrochloride 5 mg oral tablet (4 sources) Opioid Agonist Start: 09-10-2022 take 1 tablet by mouth every eight hours Oxycodone-Acetam inophen Active 1 TABLET PO Q8H 28 September 10, 2022 aspirin 325 mg oral tablet (4 sources) Platelet Aggregation Inhibitor, Nonsteroidal Anti-inflammatory Drug Start: 09-10-2022 take 325 mg by mouth once daily Aspirin Active 325 MG PO DAILY September 09, 2022 11:00pm busPIRone hydrochloride 15 mg oral tablet (6 sources) Start: 07-06-2024 busPIRone (BUSPAR) 15 mg tablet 07/06/2024 Active Start: 09-08-2022 take 15 mg by mouth twice lindsay y Buspirone Active 15 MG PO TWICE A DAY September 07, 2022 11:00pm cetirizine hydrochloride 10 mg oral tablet (2 sources) Histamine-1 Receptor Antagonist Start: 09-07-2012 take 1 tablet by mouth once daily cetirizine (ZYRTEC) 10 mg tablet Take 1 tablet by mouth once daily. 0 09/07/2012 Active cholecalciferol, vitamin D3, (VITAMIN D3 ORAL) (2 sources) cholecalciferol, vitamin D3, (VITAMIN D3 ORAL) Take by mouth. Active doxepin 6 mg oral tablet (4 sources) Tricyclic Antidepressant Start: 09-08-2022 take 6 mg by mouth once daily Doxepin Active 6 MG PO DAILY September 07, 2022 11:00pm doxycycline hyclate 100 mg oral capsule (4 sources) Tetracycline-class Drug Start: 09-10-2022 take 100 mg by mouth once daily Doxycycline Hyclate Active 100 MG PO DAILY September 09, 2022 11:00pm escitalopram 20 mg oral tablet (2 sources) Serotonin Reuptake Inhibitor Start: 11-06-2015 take 1 tablet by mouth once daily escitalopram oxalate (LEXAPRO) 20 mg tablet Indications: Anxiety Take 1 tablet by mouth once daily. 90 tablet 3 11/06/2015 Active famotidine 20 mg oral tablet (6 sources) Histamine-2 Receptor Antagonist Start: 07-06-2024 famotidine (PEPCID) 20 mg tablet 07/06/2024 Active Start: 09-08-2022 take 20 mg by mouth every twelve hours Famotidine Active 20 MG PO Q12H September 07, 2022 11:00pm fexofenadine hydrochloride 180 mg oral tablet (6 sources) Histamine-1 Receptor Antagonist Start: 07-06-2024 fexofenadine (ELINOR) 180 mg tablet 07/06/2024 Active Start: 09-08-2022 take 1 tablet by jasmyn th once daily Fexofenadine (Elinor Allergy) 180 mg tablet Active 180 MG PO DAILY September 07, 2022 11:00pm 12 hr guaiFENesin 600 mg extended release oral tablet (2 sources) Start: 05-27-2015 take 2 tablets by mouth twice daily guaiFENesin (MUCINEX) 600 mg 12 hr tablet Indications: Cough Take 2 tablets by mouth twice daily. 30 tablet 0 05/27/2015 Active lithium carbonate 150 mg oral capsule (2 sources) Start: 07-06-2024 lithium carbonate (ESKALITH) 150 mg capsule 07/06/2024 Active semaglutide (WEGOVY SUBCUTANEOUS) (2 sources) semaglutide (WEGOVY SUBCUTANEOUS) Inject subcutaneously. Active traZODone hydrochloride 100 mg oral tablet (2 sources) Serotonin Reuptake Inhibitor Start: 07-06-2024 traZODone (DESYREL) 100 mg tablet 07/06/2024 Active 24 hr venlafaxine 150 mg extended release oral tablet (6 sources) Serotonin and Norepinephrine Reuptake Inhibitor Start: 05-15-2024 take 1 tablet by mouth once daily VENLAFAXINE ER 150 MG TABLET,EXTENDED RELEASE 24 HR Take 1 tablet by mouth once daily. 05/15/2024 Active Start: 09-08-2022 take 75 mg by mouth once daily Venlafaxine Active 75 MG PO DAILY September 07, 2022 11:00pm Problems Problem Classification Problem Date Documented Date Episodic/Chronic Adjustment disorders (2 sources) Adjustment disorder with mixed anxiety and depressed mood; Translations: [Adjustment disorder with mixed anxiety and depressed mood] Onset: 04-25-2015 04-25-2015 Chronic Administrative/social admission (5 sources) Patient encounter status; Translations: [Encounter for pre-employment examination] 11-04-2022 Episodic Anxiety disorders (2 sources) Panic disorder without agoraphobia; Translations: [Panic disorder [episodic paroxysmal anxiety]] Onset: 04-25-2015 04-25-2015 Chronic Fracture of lower limb (11 sources) Closed trimalleolar fracture; Translations: [Displaced trimalleolar fracture of left lower leg, initial encounter for closed fracture] 09-10-2022 Episodic Joint disorders and dislocations; trauma-related (4 sources) Dislocation of unspecified ankle joint, initial encounter; Translations: [Dislocation of ankle] 09-03-2022 Episodic Nutritional deficiencies (1 source) Vitamin D deficiency, unspecified; Translations: [Vitamin D deficiency, unspecified] Onset: 12-24-2024 Chronic Other nervous system disorders (4 sources) Acute postoperative pain; Translations: [Other acute postprocedural pain] 09-10-2022 Episodic Other nutritional; endocrine; and metabolic disorders (1 source) Obesity, unspecified; Translations: [Obesity, unspecified] Onset: 12-24-2024 Chronic Other screening for suspected conditions (not mental disorders or infectious disease) (1 source) Encounter for screening for lipoid disorders; Translations: [Encounter for screening for lipoid disorders] Onset: 12-24-2024 Episodic Other upper respiratory infections (3 sources) Acute upper respiratory infection; Translations: [Acute upper respiratory infection, unspecified] Onset: 08-01-2024 08-01-2024 Episodic Sprains and strains (7 sources) Rupture of medial ankle ligament; Translations: [Sprain of deltoid ligament of left ankle, initial encounter] 09-10-2022 Episodic Results Test Name Value Interpretation Reference Range Facility CBC W/Diff, Automatedon 11- Absolute Lymph 2.55 X10 3/uL Normal 0.83-4.51 [facility] Comment on above: Performed By: #### L 500.4100, L501.9520, L501.9985, L100.0100, L506.1001, L500.4050 #### [facility] [address] [place], [address] Absolute Neut 5.0 X10 3/uL Normal 2.0-7.7 [facility] Comment on above: Performed By: #### L 500.4100, L501.9520, L501.9985, L100.0100, L506.1001, L500.4050 #### [facility] [address] [facility] [place], [address] Basophils/100 WBC (Bld) 0.6 % Normal 0-1 [facility] Comment on above: Performed By: #### L 500.4100, L501.9520, L501.9985, L100.0100, L506.1001, L500.4050 #### [facility] [address] [place], [address] Eosinophils/100 WBC (Bld) 1.1 % Normal 0-5 [facility] Comment on above: Performed By: #### L 500.4100, L501.9520, L501.9985, L100.0100, L506.1001, L500.4050 #### [facility] [address] [place], [address] Erythrocyte distribution width (RBC) [Ratio] 12.2 % Normal 11.6-14.6 [facility] Comment on above: Performed By: #### L 500.4100, L501.9520, L501.9985, L100.0100, L506.1001, L500.4050 #### [facility] [address] [place], [address] Hematocrit (Bld) [Volume fraction] 41.4 % Normal 37-47 [facility] Comment on above: Performed By: #### L 500.4100, L501.9520, L501.9985, L100.0100, L506.1001, L500.4050 #### [facility] [address] [place], [address] Hemoglobin (Bld) [Mass/Vol] 13.7 g/dL Normal 12.0-15.0 [facility] Comment on above: Performed By: #### L 500.4100, L501.9520, L501.9985, L100.0100, L506.1001, L500.4050 #### [facility] [address] [place], [address] IG% 0.200 Normal 0.0-0.9 [facility] Comment on above: Result Comment: IG% - Immature Granulocytes (promyelocytes, myelocytes and metamyelocytes) > 1% indicates that a LEFT SHIFT is Present. Performed By: #### L 500.4100, L501.9520, L501.9985, L100.0100, L506.1001, L500.4050 #### [facility] [address] [place], [address] Lymphocytes/100 WBC (Bld) 30.8 % Normal 19-41 [facility] Comment on above: Performed By: #### L 500.4100, L501.9520, L501.9985, L100.0100, L506.1001, L500.4050 #### [facility] [address] [place], [address] MCH (RBC) [Entitic mass] 29.5 pg Normal 27.0-32.0 [facility] Comment on above: Performed By: #### L 500.4100, L501.9520, L501.9985, L100.0100, L506.1001, L500.4050 #### [facility] [address] [place], [address] MCHC (RBC) [Mass/Vol] 33.1 g/dL Normal 32-36 [facility] Comment on above: Performed By: #### L 500.4100, L501.9520, L501.9985, L100.0100, L506.1001, L500.4050 #### [facility] [address] [place], [address] MCV (RBC) [Entitic vol] 89.2 fL Normal 81-99 [facility] Comment on above: Performed By: #### L 500.4100, L501.9520, L501.9985, L100.0100, L506.1001, L500.4050 #### [facility] [address] [place], [address] Monocytes/100 WBC (Bld) 6.5 % Normal 0-10 [facility] Comment on above: Performed By: #### L 500.4100, L501.9520, L501.9985, L100.0100, L506.1001, L500.4050 #### [facility] [address] [place], [address] Neutrophils/100 WBC (Bld) 60.8 % Normal 47-70 [facility] Comment on above: Performed By: #### L 500.4100, L501.9520, L501.9985, L100.0100, L506.1001, L500.4050 #### [facility] [address] [place], [address] Nucleated RBC (Bld) [#/Vol] 0 10*3/uL Normal 0-5 [facility] Comment on above: Performed By: #### L 500.4100, L501.9520, L501.9985, L100.0100, L506.1001, L500.4050 #### [facility] [address] [place], [address] Platelet mean volume (Bld) [Entitic vol] 9.8 fL Normal 6.2-12.0 [facility] Comment on above: Performed By: #### L 500.4100, L501.9520, L501.9985, L100.0100, L506.1001, L500.4050 #### [facility] [address] [place], [address] Platelets (Bld) [#/Vol] 291 10*3/uL Normal 150-450 [facility] Comment on above: Performed By: #### L 500.4100, L501.9520, L501.9985, L100.0100, L506.1001, L500.4050 #### [facility] [address] [place], [address] RBC (Bld) [#/Vol] 4.64 10*6/uL Normal 4.2-5.4 [facility] Comment on above: Performed By: #### L 500.4100, L501.9520, L501.9985, L100.0100, L506.1001, L500.4050 #### [facility] [address] [place], [address] RDW SD 40.1 fl Normal 35.1-43.9 [facility] Comment on above: Performed By: #### L 500.4100, L501.9520, L501.9985, L100.0100, L506.1001, L500.4050 #### [facility] [address] [place], [address] WBC (Bld) [#/Vol] 8.3 10*3/uL Normal 4.4-11.0 [facility] Comment on above: Performed By: #### L 500.4100, L501.9520, L501.9985, L100.0100, L506.1001, L500.4050 #### [facility] [address] [place], [address] Comprehensive Metabolic Prof [facility] 12-24-2024 Albumin [Mass/Vol] 4.4 g/dL Normal 3.5-5.0 [facility] Comment on above: Performed By: #### L 500.4100, L501.9520, L501.9985, L100.0100, L506.1001, L500.4050 #### [facility] [address] [place], [address] Albumin/Globulin [Mass ratio] 1.5 {ratio} Normal 0.9-2.4 [facility] Comment on above: Performed By: #### L 500.4100, L501.9520, L501.9985, L100.0100, L506.1001, L500.4050 #### [facility] [address] [place], [address] ALK PHOS 58 U/L Normal 35-104 [facility] Comment on above: Performed By: #### L 500.4100, L501.9520, L501.9985, L100.0100, L506.1001, L500.4050 #### [facility] [address] [place], [address] ALT [Catalytic activity/Vol] 14 U/L Normal <=34 [facility] Comment on above: Performed By: #### L 500.4100, L501.9520, L501.9985, L100.0100, L506.1001, L500.4050 #### [facility] [address] [place], [address] AST [Catalytic activity/Vol] 13 U/L Normal <=31 [facility] Comment on above: Performed By: #### L 500.4100, L501.9520, L501.9985, L100.0100, L506.1001, L500.4050 #### [facility] [address] [place], [address] Bilirubin [Mass/Vol] 0.23 mg/dL Normal 0.00-1.30 [facility] Comment on above: Performed By: #### L 500.4100, L501.9520, L501.9985, L100.0100, L506.1001, L500.4050 #### [facility] [address] [place], [address] BUN/CRE 11.0 RATIO Normal 10-20 [facility] Comment on above: Performed By: #### L 500.4100, L501.9520, L501.9985, L100.0100, L506.1001, L500.4050 #### [facility] [address] [place], [address] Calcium [Mass/Vol] 9.0 mg/dL Normal 7.6-11.0 [facility] Comment on above: Performed By: #### L 500.4100, L501.9520, L501.9985, L100.0100, L506.1001, L500.4050 #### [facility] [address] [place], [address] Chloride [Moles/Vol] 104 mmol/L Normal 98-108 [facility] Comment on above: Performed By: #### L 500.4100, L501.9520, L501.9985, L100.0100, L506.1001, L500.4050 #### [facility] [address] [place], [address] CO2 [Moles/Vol] 22.7 mmol/L Normal 21.0-32.0 [facility] Comment on above: Performed By: #### L 500.4100, L501.9520, L501.9985, L100.0100, L506.1001, L500.4050 #### [facility] [address] [place], [address] Creatinine [Mass/Vol] 0.92 mg/dL Normal 0.70-1.20 [facility] Comment on above: Performed By: #### L 500.4100, L501.9520, L501.9985, L100.0100, L506.1001, L500.4050 #### [facility] [address] [place], [address] GAP 11 Normal 5-15 [facility] Comment on above: Performed By: #### L 500.4100, L501.9520, L501.9985, L100.0100, L506.1001, L500.4050 #### [facility] [address] [place], [address] GFR/1.73 sq M.predicted among non-blacks MDRD (S/P/Bld) [Vol rate/Area] 85 mL/min/{1.73_m2} Normal >60 [facility] Comment on above: Result Comment: mL/m in/1.73m2 CKD-EPI Creatinine Equation (2020) Performed By: #### L 500.4100, L501.9520, L501.9985, L100.0100, L506.1001, L500.4050 #### [facility] [address] [place], [address] Globulin (S) [Mass/Vol] 2.9 g/dL Normal 2.2-4.2 [facility] Comment on above: Performed By: #### L 500.4100, L501.9520, L501.9985, L100.0100, L506.1001, L500.4050 #### [facility] [address] [place], [address] Glucose [Mass/Vol] 94 mg/dL Normal 70-99 [facility] Comment on above: Performed By: #### L 500.4100, L501.9520, L501.9985, L100.0100, L506.1001, L500.4050 #### [facility] [address] [place], [address] Potassium [Moles/Vol] 3.9 mmol/L Normal 3.3-5.1 [facility] Comment on above: Performed By: #### L 500.4100, L501.9520, L501.9985, L100.0100, L506.1001, L500.4050 #### [facility] [address] [place], [address] Sodium [Moles/Vol] 137 mmol/L Normal 133-145 [facility] Comment on above: Performed By: #### L 500.4100, L501.9520, L501.9985, L100.0100, L506.1001, L500.4050 #### [facility] [address] [place], [address] T PROT 7.3 g/dL Normal 5.9-8.4 [facility] Comment on above: Performed By: #### L 500.4100, L501.9520, L501.9985, L100.0100, L506.1001, L500.4050 #### [facility] [address] [place], [address] Urea nitrogen [Mass/Vol] 10 mg/dL Normal 4-19 [facility] Comment on above: Performed By: #### L 500.4100, L501.9520, L501.9985, L100.0100, L506.1001, L500.4050 #### [facility] [address] [place], [address] Hemoglobin A1con 12-24-2024 HbA1c (Bld) [Mass fraction] 5.3 % Normal <=5.6 [facility] Comment on above: Result Comment: Norm al < 5.7 % Prediabetic 5.7 - 6.4 % Diabetic >or= 6.5 % Please note range changes. Performed By: #### L 500.4100, L501.9520, L501.9985, L100.0100, L506.1001, L500.4050 #### [facility] [address] [place], [address] Lipid Profileon 12-24-2024 CHOL:HDL 3.25 Normal [facility] Comment on above: Performed By: #### L 500.4100, L501.9520, L501.9985, L100.0100, L506.1001, L500.4050 #### [facility] [address] [place], [address] Cholesterol [Mass/Vol] 199 mg/dL Normal <=200 [facility] Comment on above: Result Comment: Chol esterol level, Desirable <200 mg/dL Borderline high cholesterol 200-239 mg/dL High cholesterol >=240 mg/dL Recommendations of the NCEP Adult Treatment Panel for the following risk-cutoff thresholds for the [place] population. Performed By: #### L 500.4100, L501.9520, L501.9985, L100.0100, L506.1001, L500.4050 #### [facility] [address] [place], [address] Cholesterol in HDL [Mass/Vol] 61 mg/dL Normal [facility] Comment on above: Result Comment: Samina onal Cholesterol Education Program (NCEP) guidelines: <40 mg/dL: Low HDL-cholesterol (major risk factor for CHD) >= 60 mg/dL: High HDL-cholesterol (negative risk factor for CHD) HDL-cholesterol is affected by a number of factors, e.g. smoking, exercise, hormones, sex and age. Performed By: #### L 500.4100, L501.9520, L501.9985, L100.0100, L506.1001, L500.4050 #### [facility] [address] [place], [address] Cholesterol in LDL [Mass/Vol] 123 mg/dL Normal [facility] Comment on above: Result Comment: Bord tnkigc=659-913 mg/dL Higher Ougg=386 mg/dL or greater Campo Equation 2020 for LDL-C Performed By: #### L 500.4100, L501.9520, L501.9985, L100.0100, L506.1001, L500.4050 #### [facility] [address] [place], [address] Cholesterol in VLDL [Mass/Vol] 16 mg/dL Normal 5-40 [facility] Comment on above: Performed By: #### L 500.4100, L501.9520, L501.9985, L100.0100, L506.1001, L500.4050 #### [facility] [address] [place], [address] Triglyceride [Mass/Vol] 82 mg/dL Normal [facility] Comment on above: Result Comment: The drugs N-Acetylcysteine and Metamizole may falsely depress this assay. Normal range: <150 mg/dL Borderline High: 150-199 mg/dL High: 200-499 mg/dL Very High: >500 mg/dL Performed By: #### L 500.4100, L501.9520, L501.9985, L100.0100, L506.1001, L500.4050 #### [facility] [address] [place], [address] Thyroid Stim Hormone (TSH)on 12-24-2024 TSH 3.040 uIU/mL Normal 0.300-4.20 0 [facility] Comment on above: Performed By: #### L 500.4100, L501.9520, L501.9985, L100.0100, L506.1001, L500.4050 #### [facility] [address] [place], [address] Vitamin D,25 Hydroxyon 12-24 Vitamin D 25-OH 40.7 ng/mL Normal 30-100 [facility] Comment on above: Result Comment: Ne min D Status Deficiency: <20 ng/mL (50nmol/L) Insufficiency: 20-30 ng/mL (50-75 nmol/L) Sufficiency: 30-100 ng/mL (75-250 nmol/L) Toxicity: >100 ng/mL (>250 nmol/L) Performed By: #### L 500.4100, L501.9520, L501.9985, L100.0100, L506.1001, L500.4050 #### [facility] [address] [place], [address] CNOVon 08-01-2024 [facility] Office Visit (UCTR ) AMBER CISNEROS ([id number]) 1995 F Date Time Provider Department 08/01/24 4:00 PM JANET CANDELARIO [facility] During your visit today, we recorded the following information about you: Temperature Pulse Respiration Blood pressure 100.8 degrees 110/minute 18/minute 104/72 Weight 72.9 kg Janet Candelario APRN.CNP 08/01/2024 5:25 PM Signed [facility] Subjective Amber Cisneros is a 28 year old female. Patient presents with: Cough: Sore throat, RM, LEMUEL ear issues x 1 day Cough Pharyngitis: - Onset yesterday after caring for her mother, who was ill with a cough. - Severe odynophagia. - Denies taking any OTC medications. Cephalgia: - Onset this morning, described as pressure in the back of the skull. Myalgia: - Generalized body aches, exacerbated by lack of sleep last night. - Works in a [employer], which involves physical labor. Fever and Chills: - Subjective fever and chills noted yesterday. - Temperature recorded at 100.8?F. PAST MEDICAL HISTORY Diagnosis Date NEGATIVE HISTORY OF 10/03/2008 Normal color vision NEGATIVE MEDICAL HISTORY PAST SURGICAL HISTORY Procedure Laterality Date NONE ALLERGIES [facility] and [employer]raw[employer] MEDICATIONS lithium carbonate (ESKALITH) 150 mg capsule busPIRone (BUSPAR) 15 mg tablet famotidine (PEPCID) 20 mg tablet fexofenadine (ELINOR) 180 mg tablet VENLAFAXINE ER 150 MG TABLET,EXTENDED RELEASE 24 HR Take 1 tablet by mouth once daily. traZODone (DESYREL) 100 mg tablet cholecalciferol, vitamin D3, (VITAMIN D3 ORAL) Take by mouth. semaglutide (WEGOVY SUBCUTANEOUS) Inject subcutaneously. escitalopram oxalate (LEXAPRO) 20 mg tablet Take 1 tablet by mouth once daily. cetirizine (ZYRTEC) 10 mg tablet Take 1 tablet by mouth once daily. guaiFENesin (MUCINEX) 600 mg 12 hr tablet Take 2 tablets by mouth twice daily. (Patient not taking: Reported on 08/01/2024) FAMILY HISTORY Problem Relation Age of Onset Cancer Paternal Grandmother Stroke Paternal Grandfather Heart Paternal Grandfather Heart Maternal Grandmother Stroke Maternal Grandmother Diabetes Paternal Grandfather other (sleep [Other]) Father sleep apnea Social History Tobacco Use Smoking status: Never Smokeless tobacco: Never Substance Use Topics Alcohol use: No Drug use: No Review of Systems Respiratory: Positive for cough. Constitutional: (+) fever, (+) chills, (+) body aches, (+) fatigue Head: (+) headache Ears/Nose/Mouth/Throat: (+) sore throat, (+) odynophagia Respiratory: (+) dry cough Objective BP 104/72 Pulse 110 Temp (!) 38.2 ?C (100.8 ?F) Resp 18 Wt 72.9 kg (160 lb 11.5 oz) LMP 02/27/2017 SpO2 98% Physical Exam Vitals and nursing note reviewed. Constitutional: General: She is not in acute distress. Appearance: Normal appearance. She is normal weight. She is not ill-appearing, toxic-appearing or diaphoretic. HENT: Head: Normocephalic and atraumatic. Right Ear: Ear canal and external ear normal. Left Ear: Ear canal and external ear normal. Nose: Nose normal. No congestion or rhinorrhea. Mouth/Throat: Mouth: Mucous membranes are moist. Pharynx: No oropharyngeal exudate or posterior oropharyngeal erythema. Eyes: General: Right eye: No discharge. Left eye: No discharge. Extraocular Movements: Extraocular movements intact. Conjunctiva/sclera: Conjunctivae normal. Pupils: Pupils are equal, round, and reactive to light. Cardiovascular: Rate and Rhythm: Normal rate and regular rhythm. Pulses: Normal pulses. Heart sounds: Normal heart sounds. No murmur heard. No friction rub. Pulmonary: Effort: Pulmonary effort is normal. No respiratory distress. Breath sounds: Normal breath sounds. No stridor. No wheezing, rhonchi or rales. Chest: Chest wall: No tenderness. Abdominal: General: Abdomen is flat. There is no distension. Palpations: Abdomen is soft. There is no mass. Tenderness: There is no abdominal tenderness. There is no right CVA tenderness, left CVA tenderness, guarding or rebound. Hernia: No hernia is present. Musculoskeletal: General: No swelling, tenderness, deformity or signs of injury. Normal range of motion. Cervical back: Normal range of motion and neck supple. No rigidity. Right lower leg: No edema. Left lower leg: No edema. Lymphadenopathy: Cervical: No cervical adenopathy. Skin: General: Skin is warm and dry. Capillary Refill: Capillary refill takes less than 2 seconds. Coloration: Skin is not jaundiced or pale. Findings: No bruising, erythema, lesion or rash. Neurological: General: No focal deficit present. Mental Status: She is alert and oriented to person, place, and time. Cranial Nerves: No cranial nerve deficit. Sensory: No sensory deficit. Motor: No weakness. Coordination: Coordination normal. Gait: Gait normal. Psychiatric: Mood a (more content not included)... Normal [facility] STREP A MOLECULAR (POC)on Procedural Control Valid [facility] Strep A (POCT) Negative Negative [facility] Qualitative QuantiFERON-TB g old in tube testOrdered By: Phil Joseph on 11-04-2022 M. tuberculosis tuberculin stim IFN-g Ql (Bld) 0.10 IU/mL . [facility] Thin prep Papanicolaou smear with manual screeningOrdered By: Phil Joseph on 11-04-2022 Thin prep Papanicolaou smear with manual screening Comment . [facility] Comment on above: QuantiFERON-TB Gold Plus is a qualitative indirect test forM tuberculosis infection (including disease) and isintended for use in conjunction with risk assessment,radiography, and other medical and diagnostic evaluations.The QuantiFERON-TB Gold Plus result is determined bysubtracting the Nil value from either TB antigen (Ag)value. The Mitogen tube serves as a control for the test. Thin prep Papanicolaou smear with manual screening 0.10 IU/mL . [facility] Thin prep Papanicolaou smear with manual screening 0.09 IU/mL . [facility] Thin prep Papanicolaou smear with manual screening > 10.00 IU/mL . [facility] Thin prep Papanicolaou smear with manual screening Negative Negative [facility] Comment on above: No response to M tub erculosis antigens detected.Infection with M tuberculosis is unlikely, but high riskindividuals should be considered for additional testing(ATS/IDSA/CDC Clinical Practice Guidelines, 2017). Thereference range is an Antigen minus Nil result of <0.35IU/mL.The specimen received for QuantiFERON testing was incubatedby the ordering institution. Specific procedures outlinedin our Directory of Services and in the package insert forthe QuantiFERON Gold (In Tube) test must be followed toenable for proper stimulation of cells for the productionof interferon gamma. Chemiluminescence immunoassaymethodologyPerformed at: [facility] [id number] Director: Zev Peña PhD, Phone: [phone] Beta hCG serum qualOrdered B y: Gen Vidal on 09-10-2022 Beta HCG ( test) Ql Negative [facility] Absolute lymphocyte countOrd ered By: [facility] on 09-08-2022 Lymphocytes Auto (Unsp spec) [#/Vol] 2.03 10*3/uL 0.83-4.51 [facility] Basophil percentageOrdered B y: [facility] on 09-08-2022 Basophils/100 WBC (Bld) 0.4 % 0-1 [facility] Bilirubin [Mass/Vol] 0.40 mg/dL 0.20-1.00 [facility] Comment on above: For patients on eltr ombopag therapy, use of Dimension Mcclure TBIL is not recommended. Chloride [Moles/Vol] 109 mmol/L 98-107 [facility] Eosinophils/100 WBC (Bld) 1.4 % 0-5 [facility] Glucose [Mass/Vol] 83 mg/dL 74-106 [facility] Neutrophils (Bld) [#/Vol] 6.7 10*3/uL 2.0-7.7 [facility] Neutrophils/100 WBC (Bld) 69.9 % 47-70 [facility] Potassium [Moles/Vol] 3.9 mmol/L 3.5-5.1 [facility] Protein [Mass/Vol] 7.7 g/dL 6.4-8.2 [facility] Sodium [Moles/Vol] 141 mmol/L 136-145 [facility] WBC (Bld) [#/Vol] 9.6 10*3/uL 4.4-11.0 [facility] Blood erythrocytes count (nu mber/volume)Ordered By: [facility] on 09-08-2022 RBC (Bld) [#/Vol] 4.68 10*6/uL 4.2-5.4 [facility] Blood hemoglobin measurement (mass/volume)Ordered By: [facility] on 09-08-2022 Hemoglobin (Bld) [Mass/Vol] 13.6 g/dL 12.0-15.0 [facility] Blood lymphocytes/100 leukoc ytesOrdered By: [facility] on 09-08-2022 Lymphocytes/100 WBC (Bld) 21.2 % 19-41 [facility] Blood monocytes/100 leukocyt esOrdered By: [facility] on 09-08-2022 Monocytes/100 WBC (Bld) 6.6 % 0-10 [facility] Blood platelet mean volumeOr dered By: [facility] on 09-08-2022 Platelet mean volume (Bld) [Entitic vol] 9.5 fL 6.2-12.0 [facility] Determination of erythrocyte mean corpuscular volume (MCV)Ordered By: [facility] on 09-08-2022 MCV (RBC) [Entitic vol] 88.5 fL 81-99 [facility] Hematocrit Auto (Bld) [Volum e fraction]Ordered By: [facility] on 09-08-2022 Hematocrit (Bld) [Volume fraction] 41.4 % 37-47 [facility] Laboratory - Chemistry and C hemistry - challengeOrdered By: [facility] on 09-08-2022 ALP [Catalytic activity/Vol] 122 U/L 45-117 [facility] ALT [Catalytic activity/Vol] 107 U/L 13-56 [facility] CO2 [Moles/Vol] 28.0 mmol/L 21.0-32.0 [facility] Globulin (S) [Mass/Vol] 3.7 g/dL 2.2-4.2 [facility] Urea nitrogen/Creatinine [Mass ratio] 10.5 mg/mg 10-20 [facility] Laboratory - Hematology and Cell countsOrdered By: [facility] on 09-08-2022 Erythrocyte distribution width (RBC) [Entitic vol] 42.4 fL 35.1-43.9 [facility] Erythrocyte distribution width (RBC) [Ratio] 13.0 % 11.6-14.6 [facility] Immature granulocytes/100 WBC (Bld) 0.500 % 0.0-0.9 [facility] Comment on above: IG% - Immature Granu locytes (promyelocytes, myelocytes and metamyelocytes) > 1% indicates that a LEFT SHIFT is Present. MCH (RBC) [Entitic mass] 29.1 pg 27.0-32.0 [facility] Nucleated RBC/100 WBC (Bld) [Ratio] 0 % 0-5 [facility] MCHC Auto (RBC) [Mass/Vol]Or dered By: [facility] on 09-08-2022 MCHC (RBC) [Mass/Vol] 32.9 g/dL 32-36 [facility] No Panel InformationOrdered By: CAYDEN ATCHISON on 09-08-2022 Estimated GFR (MDRD) Amer 90 mL/min >60 [facility] Comment on above: GFR Calc Estimated GFR (MDRD) Non-Af Amer 74 mL/min >60 [facility] Comment on above: Non- GFR Calc Platelets bldOrdered By: ALONZO LENNON ATCHISON on 09-08-2022 Platelets (Bld) [#/Vol] 329 10*3/uL 150-450 [facility] Serum or plasma albumin kadeem urement (mass/volume)Ordered By: [facility] on 09-08-2022 Albumin [Mass/Vol] 4.0 g/dL 3.2-5.0 [facility] Serum or plasma albumin/glob ulin mass ratioOrdered By: [facility] on 09-08-2022 Albumin/Globulin [Mass ratio] 1.1 {ratio} 0.9-2.4 [facility] Serum or plasma calcium kadeem urement (mass/volume)Ordered By: [facility] on 09-08-2022 Calcium [Mass/Vol] 9.2 mg/dL 8.5-10.1 [facility] Serum or plasma creatinine m easurement (mass/volume)Ordered By: [facility] on 09-08-2022 Creatinine [Mass/Vol] 0.95 mg/dL 0.55-1.02 [facility] Comment on above: The validity of the calculated GFR & GFRAA in patients over 70 years has not been determined. Clinical correlation is essential. Serum or plasma urea nitroge n measurement (mass/volume)Ordered By: [facility] on 09-08-2022 Urea nitrogen [Mass/Vol] 10 mg/dL 7-18 [facility] Thin prep Papanicolaou smear with manual screeningOrdered By: [facility] on 09-08-2022 Thin prep Papanicolaou smear with manual screening 25 U/L 15-37 [facility] Thin prep Papanicolaou smear with manual screening 4 5-15 [facility] Vital Signs Date Time Vital Sign Value Performing Clinician Facility 08-01-2024 16:01-0400 Body temperature 100.8 [degF] Janet Candelario CENTRAL OFFICE OPERATOR SUPERVISOR.BELL RINGER Work Phone: [facility] 08-01-2024 16:01-0400 Body weight 72.9 kg Janet Candelario CENTRAL OFFICE OPERATOR SUPERVISOR.BE[employer]ER Work Phone: [facility] 08-01-2024 16:01-0400 Diastolic blood pressure 72 mm[Hg] Janet Candelario CENTRAL OFFICE OPERATOR SUPERVISOR.BE[employer]INGER Work Phone: [facility] 08-01-2024 16:01-0400 Heart rate 110 /min Janet Candelario CENTRAL OFFICE OPERATOR SUPERVISOR.[employer]ER Work Phone: [facility] 08-01-2024 16:01-0400 Respiratory rate 18 /min Janet Candelario CENTRAL OFFICE OPERATOR SUPERVISOR.BE[employer]ER Work Phone: [facility] 08-01-2024 16:01-0400 SaO2% (BldA) [Mass fraction] 98 % Janet Candelario CENTRAL OFFICE OPERATOR SUPERVISOR.BE[employer] RINGER Work Phone: [facility] 08-01-2024 16:01-0400 Systolic blood pressure 104 mm[Hg] Janet Candelario CENTRAL OFFICE OPERATOR SUPERVISOR.[employer]ER Work Phone: [facility] 09-10-2022 18:20-0400 Body temperature 97.2 [degF] [facility] 09-10-2022 18:20-0400 Diastolic blood pressure 74 mm[Hg] [facility] 09-10-2022 18:20-0400 Heart rate 90 /min [facility] 09-10-2022 18:20-0400 Respiratory rate 16 /min [facility] 09-10-2022 18:20-0400 SaO2% (BldA) [Mass fraction] 99 % [facility] 09-10-2022 18:20-0400 Systolic blood pressure 118 mm[Hg] [facility] 09-10-2022 17:30-0400 Inhaled oxygen flow rate 2 L/min [facility] 09-10-2022 11:44-0400 Body height 160.02 cm [facility] 09-10-2022 11:44-0400 Body mass index (BMI) [Ratio] 32.4 kg/m2 [facility] 09-10-2022 11:44-0400 Body weight 83 kg [facility] 09-03-2022 21:27-0400 Diastolic blood pressure 58 mm[Hg] [facility] 09-03-2022 21:27-0400 Heart rate 69 /min [facility] 09-03-2022 21:27-0400 Respiratory rate 16 /min [facility] 09-03-2022 21:27-0400 SaO2% (BldA) [Mass fraction] 100 % [facility] 09-03-2022 21:27-0400 Systolic blood pressure 121 mm[Hg] [facility] 09-03-2022 19:59-0400 Inhaled oxygen flow rate 99 L/min [facility] 09-03-2022 19:42-0400 Body temperature 98 [degF] [facility] 09-03-2022 15:09-0400 Body mass index (BMI) [Ratio] 33.9 kg/m2 [facility] 09-03-2022 15:09-0400 Body weight 86.9 kg [facility] Encounters Encounter Date Encounter Type Care Provider Facility Start: 12-24-2024 ambulatory [facility] Facility:[facility] Start: 08-02-2024 End: 08-02-2024 Follow-up encounter Melyssa Moise APRN.CNP Work Phone: [facility] Start: 08-01-2024 End: 08-01-2024 Patient encounter procedure Janet Candelario APRN.BELL RINGER Work Phone: [facility] Comment on above: URI, acute (Primary Dx); Acute pharyngitis, unspecified etiology; Encounter for screening for COVID-19 Start: 08-01-2024 End: 08-01-2024 ambulatory JANET BALLESTEROS Facility:[facility] Start: 11-09-2022 End: 11-09-2022 ambulatory [facility] Work Phone: [facility] Work Phone: Start: 11-09-2022 End: 11-09-2022 Discharged Recurring [facility] Work Phone: [facility] Work Phone: Start: 11-09-2022 Registered Recurring [facility] Work Phone: [facility] Work Phone: Start: 11-04-2022 End: 11-04-2022 ambulatory [facility] Work Phone: [facility] Work Phone: Start: 11-04-2022 End: 11-04-2022 Patient encounter procedure [facility] Work Phone: [facility] Work Phone: Start: 09-10-2022 End: 09-10-2022 Admission to same day surgery center [facility] Start: 09-10-2022 End: 09-10-2022 ambulatory [facility] Work Phone: Start: 09-08-2022 End: 09-08-2022 ambulatory [facility] Work Phone: Start: 09-08-2022 End: 09-08-2022 Patient encounter procedure [facility] Work Phone: Start: 09-03-2022 End: 09-03-2022 Emergency department patient visit [facility] Work Phone: Procedures Date Procedure Procedure Detail Performing Clinician Start: 08-01-2024 Iadna streptococcus group a amplified probe tq Janet Candelario APRNИРИНА Work Phone: Start: 09-10-2022 Radiography of ankle Start: 09-10-2022 Fluoroscopic guidance Start: 09-10-2022 Radiography of ankle Start: 09-10-2022 Open reduction with internal fixation Start: 09-03-2022 Radiography of ankle Start: 09-03-2022 Radiography of ankle Plan of Treatment Date Care Activity Detail Author Start: 05-31-2031 Urine microalbumin profile DTaP,Tdap,Td Vaccine (8 - Td or Tdap) [facility] Start: 03-05-2025 Screening for malignant neoplasm of cervix Cervical Cancer Screening [facility] Start: 10-15-2024 Influenza vaccination Influenza Vaccine (Season Ended) [facility] Start: 10-16-2023 Covid-19 Vaccine ( season) Covid-19 Vaccine ( season) [facility] Start: 09-10-2022 Radiography of ankle Ankle min 3 Views [facility] Start: 09-10-2022 XR Ankle GE 3 Views [facility] Start: 09-10-2022 Anes open proc bones lower leg/ankle/foot nos ANESTH LOWER LEG BONE SURG [facility] Start: 09-10-2022 Injection aa&/strd sciatic nerve NJX AA&/STRD SCIATIC NRV IMG [facility] Start: 09-10-2022 Open tx trimalleolar ankle fx w/o fixj pst lip TREATMENT OF ANKLE FRACTURE [facility] Start: 09-10-2022 Rpr primary disrupted ligament ankle collateral REPAIR OF ANKLE LIGAMENT [facility] Start: 09-10-2022 Radiography of ankle Ankle 2 Views [facility] Start: 09-10-2022 XR Ankle 2 Views [facility] Start: 09-10-2022 Application of ice collar, cap or bag [facility] Start: 09-10-2022 Catheterization of vein [facility] Start: 09-10-2022 Elevation of foot of bed [facility] Start: 09-10-2022 Neurovascular assessment [facility] Start: 09-10-2022 Patient discharge [facility] Start: 09-10-2022 Procedure discontinued [facility] Start: 09-10-2022 Vital signs measurements [facility] Start: 09-10-2022 [facility] Start: 10-02-2011 Depression Screening Depression Screening [facility] Start: 10-02-2011 Hepatitis C screening Hepatitis C Screening [facility] Start: 10-02-2011 HIV screening HIV Screening [facility] COVID & INFLUENZA A/ B & RSV PCR, ROUTINE COVID & INFLUENZA A/B & RSV PCR, ROUTINE Microbiology Routine URI, acute 08/01/2024 6:40 PM EDT [facility] Work Phone: Patient Education ED Ankle Dislo cation (Adult) ED Ankle Fracture [facility] Work Phone: Patient referral [facility] Work Phone: Immunizations Immunization Date Immunization Notes Care Provider Pam christy 11-03-2022 influenza virus vaccine, unspecified formulation Janet Candelario CENTRAL OFFICE OPERATOR SUPERVISOR.BELL RINGER Work Phone: [facility] 05-30-2021 tetanus toxoid, redu victorina diphtheria toxoid, and acellular pertussis vaccine, adsorbed Janet Candelario CENTRAL OFFICE OPERATOR SUPERVISOR.BE[employer]INGER Work Phone: [facility] 06-28-2013 varicella virus vaccine Ashlyn ica Candelario CENTRAL OFFICE OPERATOR SUPERVISOR.BE[employer] RINGER Work Phone: [facility] 09-20-2012 Meningococcal, MCV4, unspecified conjugate formulation(groups A, C, Y and W-135) Janet Candelario CENTRAL OFFICE OPERATOR SUPERVISOR.BE[employer]INGER Work Phone: [facility] 06-23-2009 human papilloma viru s vaccine, quadrivalent Janet Candelario CENTRAL OFFICE OPERATOR SUPERVISOR.[employer]ER Work Phone: [facility] Work Phone: 02-04-2009 human papilloma viru s vaccine, quadrivalent Janet Candelario CENTRAL OFFICE OPERATOR SUPERVISOR.[facility] Work Phone: [facility] Work Phone: 10-03-2008 human papilloma viru s vaccine, quadrivalent Janet Candelario CENTRAL OFFICE OPERATOR SUPERVISOR.BE[employer] RINGER Work Phone: [facility] 10-03-2008 Meningococcal, MCV4, unspecified conjugate formulation(groups A, C, Y and W-135) Janet Candelario CENTRAL OFFICE OPERATOR SUPERVISOR.BE[employer]INGER Work Phone: [facility] 10-03-2008 tetanus toxoid, redu victorina diphtheria toxoid, and acellular pertussis vaccine, adsorbed Janet Candelario CENTRAL OFFICE OPERATOR SUPERVISOR.[employer] Work Phone: [facility] Work Phone: 10-08-1998 diphtheria, tetanus toxoids and acellular pertussis vaccine Janet Candelario CENTRAL OFFICE OPERATOR SUPERVISOR.[employer] Work Phone: [facility] 10-08-1998 measles, mumps and rubella virus vaccine Janet Candelario CENTRAL OFFICE OPERATOR SUPERVISOR.[employer] Work Phone: [facility] 10-03-1997 diphtheria, tetanus toxoids and acellular pertussis vaccine Janet Candelario CENTRAL OFFICE OPERATOR SUPERVISOR.[employer] Work Phone: [facility] 10-03-1997 haemophilus influenz ae type b vaccine, HbOC conjugate Janet Candelario CENTRAL OFFICE OPERATOR SUPERVISOR.[employer] Work Phone: [facility] 10-03-1997 poliovirus vaccine, inactivated Janet Candelario CENTRAL OFFICE OPERATOR SUPERVISOR.[employer] Work Phone: [facility] 08-15-1995 DTP-Haemophilus influenzae type b conjugate vaccine Janet Candelario CENTRAL OFFICE OPERATOR SUPERVISOR.[employer] Work Phone: [facility] 08-15-1995 varicella virus vaccine Ashlyn ica Candelario CENTRAL OFFICE OPERATOR SUPERVISOR.[employer] Work Phone: [facility] 09-14-1994 measles, mumps and rubella virus vaccine Janet Candelario CENTRAL OFFICE OPERATOR SUPERVISOR.[employer]ER Work Phone: [facility] 08-25-1994 diphtheria, tetanus toxoids and acellular pertussis vaccine Janet Candelario CENTRAL OFFICE OPERATOR SUPERVISOR.[employer] Work Phone: [facility] 08-25-1994 haemophilus influenz ae type b vaccine, HbOC conjugate Janet Candelario CENTRAL OFFICE OPERATOR SUPERVISOR.[employer] Work Phone: [facility] 08-23-1994 poliovirus vaccine, inactivated Janet Candelario CENTRAL OFFICE OPERATOR SUPERVISOR.[employer] Work Phone: [facility] 07-07-1994 diphtheria, tetanus toxoids and acellular pertussis vaccine Janet Candelario CENTRAL OFFICE OPERATOR SUPERVISOR.[employer] Work Phone: [facility] 07-07-1994 haemophilus influenz ae type b vaccine, HbOC conjugate Janet Candelario CENTRAL OFFICE OPERATOR SUPERVISOR.[employer] Work Phone: [facility] 07-07-1994 hepatitis B vaccine, pediatric or pediatric/adolescent dosage Janet Candelario CENTRAL OFFICE OPERATOR SUPERVISOR.[employer] Work Phone: [facility] 07-07-1994 poliovirus vaccine, inactivated Janet Candelario CENTRAL OFFICE OPERATOR SUPERVISOR.[employer] Work Phone: [facility] 1993 diphtheria, tetanus toxoids and acellular pertussis vaccine Janet Dejesusgs CENTRAL OFFICE OPERATOR SUPERVISOR.BE[employer]ER Work Phone: [facility] Work Phone: 1993 haemophilus influenz ae type b vaccine, HbOC conjugate Janet Candelario CENTRAL OFFICE OPERATOR SUPERVISOR.[employer] Work Phone: [facility] 1993 poliovirus vaccine, inactivated Janet Candelario CENTRAL OFFICE OPERATOR SUPERVISOR.[employer] Work Phone: [facility] 1993 hepatitis B vaccine, pediatric or pediatric/adolescent dosage Janet Candelario CENTRAL OFFICE OPERATOR SUPERVISOR.[employer] Work Phone: [facility] 1993 hepatitis B vaccine, pediatric or pediatric/adolescent dosage Janet Candelario CENTRAL OFFICE OPERATOR SUPERVISOR.BELL RINGER Work Phone: [facility] Payers Date Payer Category Payer Self-pay [id number] 2022 Medicaid [employer] [id number] 2022 Unknown [id number] Unknown ANTHEM [id number] Unknown [facility] [id number] Unknown [id number] Social History Date Type Detail Facility Start: 09-08-2022 End: 11-04-2022 Tobacco smoking status NHIS Unknown if ever smoked [facility] Start: 1995 Sex Assigned At Female [facility] Start: 10-27-2010 Tobacco smoking status NHIS Never smoked tobacco [facility] Start: 10-27-2010 Tobacco use and exposure Smokeless tobacco non-user [facility] Start: 09-26-2021 Alcoholic beverage intake Current non-drinker of alcohol (finding) [facility] Start: 01-20-2020 End: 09-26-2021 History of Social function [facility] Start: 01-20-2020 End: 09-26-2021 Tobacco use panel [facility] National Score (1-100), lower number is lower risk Not on file [facility] Start: 1995 [facility] assigned at Not [facility] NE[facility]: Highlighted row [facility] Medical Equipment Procedure Code Equipment Code Equipment Origin al Text Equipment Identifier Dates ORIF, ankle 3.0 CORTICAL SCREW. FDA Star t: 09-10-2022 ORIF, ankle ANATOMICAL POSTE RIOR PLATE FDA Start: 09-10-2022 ORIF, ankle KNOTLESS SUTURE ANCHOR FDA S tart: 09-10-2022 ORIF, ankle KNOTLESS SUTURE ANCHOR FDA S tart: 09-10-2022 ORIF, ankle ([id number]) Tendon/ligament bone anchor, bioabsorbable [id number] FDA Start: 09-10-2022 ORIF, ankle 3.0 LOCKING COMPRESSION SCREW FDA Start: 09-10-2022 ORIF, ankle 3.0 LOCKING COMPRESSION SCREW. FDA Start: 09-10-2022 ORIF, ankle 3.0 LOCKING COMPRESSION SCREW. FDA Start: 09-10-2022 ORIF, ankle 3.0 LOCKING COMPRESSION SCREW. FDA Start: 09-10-2022 ORIF, ankle 3.5 CORTICAL SCREW FDA Start : 09-10-2022 ORIF, ankle 3.5 LOCKING COMPRESSIOM SCREW FDA Start: 09-10-2022 ORIF, ankle 3.5 LOCKING COMPRESSIOM SCREW FDA Start: 09-10-2022 ORIF, ankle 3.5 LOCKING COMPRESSIOM SCREW FDA Start: 09-10-2022 ORIF, ankle 3.0 CORTICAL SCREW. FDA Star t: 09-10-2022 ORIF, ankle ANATOMICAL POSTE RIOR PLATE FDA Start: 09-10-2022 ORIF, ankle KNOTLESS SUTURE ANCHOR FDA S tart: 09-10-2022 ORIF, ankle KNOTLESS SUTURE ANCHOR FDA S tart: 09-10-2022 ORIF, ankle 3.0 LOCKING COMPRESSION SCREW FDA Start: 09-10-2022 ORIF, ankle 3.0 LOCKING COMPRESSION SCREW. FDA Start: 09-10-2022 ORIF, ankle 3.0 LOCKING COMPRESSION SCREW. FDA Start: 09-10-2022 ORIF, ankle 3.0 LOCKING COMPRESSION SCREW. FDA Start: 09-10-2022 ORIF, ankle 3.5 CORTICAL SCREW FDA Start : 09-10-2022 ORIF, ankle 3.5 LOCKING COMPRESSIOM SCREW FDA Start: 09-10-2022 ORIF, ankle 3.5 LOCKING COMPRESSIOM SCREW FDA Start: 09-10-2022 ORIF, ankle 3.5 LOCKING COMPRESSIOM SCREW FDA Start: 09-10-2022 ORIF, ankle 3.0 CORTICAL SCREW. FDA Star t: 09-10-2022 ORIF, ankle ANATOMICAL POSTE RIOR PLATE FDA Start: 09-10-2022 ORIF, ankle KNOTLESS SUTURE ANCHOR FDA S tart: 09-10-2022 ORIF, ankle KNOTLESS SUTURE ANCHOR FDA S tart: 09-10-2022 ORIF, ankle 3.0 LOCKING COMPRESSION SCREW FDA Start: 09-10-2022 ORIF, ankle 3.0 LOCKING COMPRESSION SCREW. FDA Start: 09-10-2022 ORIF, ankle 3.0 LOCKING COMPRESSION SCREW. FDA Start: 09-10-2022 ORIF, ankle 3.0 LOCKING COMPRESSION SCREW. FDA Start: 09-10-2022 ORIF, ankle 3.5 CORTICAL SCREW FDA Start : 09-10-2022 ORIF, ankle 3.5 LOCKING COMPRESSIOM SCREW FDA Start: 09-10-2022 ORIF, ankle 3.5 LOCKING COMPRESSIOM SCREW FDA Start: 09-10-2022 ORIF, ankle 3.5 LOCKING COMPRESSIOM SCREW FDA Start: 09-10-2022 Goals Date Patient Goal Desired Activity /State Functional Status Date Assessment Result Facility 12-13-2013 Are you deaf, or do you have serious difficulty hearing No 12/13/2013 4:53 PM Yvette Muniz RN No [facility] Work Phone: 12-13-2013 Are you blind, or do you have serious difficulty seeing, even when wearing glasses No 12/13/2013 4:53 PM Yvette Muniz RN No [facility] 12-13-2013 Do you have serious difficulty walking or climbing stairs No 12/13/2013 4:53 PM Yvette Muniz RN No [facility] 12-13-2013 Do you have difficul ty dressing or bathing No 12/13/2013 4:53 PM Yvette Muniz RN No [facility] 12-13-2013 Because of a physica l, mental, or emotional condition, do you have difficulty doing errands alone such as visiting a physician's office or shopping No 12/13/2013 4:53 PM Yvette Muniz RN No [facility] Mental Status Date Assessment Result Facility 09-10-2022 Cognitive function Light Pain [facility] Work Phone: 09-10-2022 Cognitive function Patient Oritone koroma Person;Place;Time [facility] Work Phone: 09-03-2022 Cognitive function Awake;Alert;A ppropriate;Fo llows Commands [facility] Work Phone: 12-13-2013 Because of a physica l, mental, or emotional condition, do you have serious difficulty concentrating, remembering, or making decisions No 12/13/2013 4:53 PM Yvette Muniz RN No [facility] Clinical Notes 09-10-2022 to 08-02-2024 Telephone Encounter - Viviana Whitt MA - 08/02/2024 10:34 AM EDTTelephone Encounter - Viviana Whitt MA - 08/02/2024 10:34 AM Janet Bonner APRN.CNP - 08/01/2024 5:24 PM EDT Note Date & Type Note Facility 08-02-2024 Telephone encount er Note Patient notified of results, verbalized understanding of instructions given. Viviana Whitt MA [facility] 08-02-2024 Miscellaneous Notes Formattin g of this note might be different from the original. Patient notified of results, verbalized understanding of instructions given. Viviana Whitt MA ----- Message from Melyssa Moise APRN.BELL RINGER sent at 08/02/2024 7:05 AM EDT ----- Please advise patient the COVID,flu, RSV test was negative. Melyssa Moise APRN.CNP documented in this encounter [facility] 08-02-2024 Telephone encount er Note ----- Message from Melyssa Moise APRN.BELL RINGER sent at 08/02/2024 7:05 AM EDT ----- Please advise patient the COVID,flu, RSV test was negative. Melyssa Moise APRN.CNP [facility] 08-01-2024 Note SARS-COV-2 (AGENT OF COVID-19) RNA: Not detected INFLUENZA A RNA: Not detected INFLUENZA B RNA: Not detected RESPIRATORY SYNCYTIAL VIRUS (RSV) RNA: Not detected [facility] Comment on above: Performed By: #### 9 [id number] #### [facility] CLIA [id number] [address] [place] [address] OF [facility] 08-01-2024 Note HNO ID: [id number] Author: JANET CANDELARIO APRN.CNP Service: ? Author Type: Nurse Practitioner Type: Progress Notes Filed: 08/01/2024 17:25 Note Text: BERTRAND Cisneros is a 28 year old female. Patient presents with: Cough: Sore throat, RM, LEMUEL ear issues x 1 day Cough Pharyngitis: - Onset yesterday after caring for her mother, who was ill with a cough. - Severe odynophagia. - Denies taking any OTC medications. Cephalgia: - Onset this morning, described as pressure in the back of the skull. Myalgia: - Generalized body aches, exacerbated by lack of sleep last night. - Works in a [employer], which involves physical labor. Fever and Chills: - Subjective fever and chills noted yesterday. - Temperature recorded at 100.8?F. PAST MEDICAL HISTORY Diagnosis Date NEGATIVE HISTORY OF 10/03/2008 Normal color vision NEGATIVE MEDICAL HISTORY PAST SURGICAL HISTORY Procedure Laterality Date NONE ALLERGIES Feathers and Strawberries MEDICATIONS lithium carbonate (ESKALITH) 150 mg capsule busPIRone (BUSPAR) 15 mg tablet famotidine (PEPCID) 20 mg tablet fexofenadine (ELINOR) 180 mg tablet VENLAFAXINE ER 150 MG TABLET,EXTENDED RELEASE 24 HR Take 1 tablet by mouth once daily. traZODone (DESYREL) 100 mg tablet cholecalciferol, vitamin D3, (VITAMIN D3 ORAL) Take by mouth. semaglutide (WEGOVY SUBCUTANEOUS) Inject subcutaneously. escitalopram oxalate (LEXAPRO) 20 mg tablet Take 1 tablet by mouth once daily. cetirizine (ZYRTEC) 10 mg tablet Take 1 tablet by mouth once daily. guaiFENesin (MUCINEX) 600 mg 12 hr tablet Take 2 tablets by mouth twice daily. (Patient not taking: Reported on 08/01/2024) FAMILY HISTORY Problem Relation Age of Onset Cancer Paternal Grandmother Stroke Paternal Grandfather Heart Paternal Grandfather Heart Maternal Grandmother Stroke Maternal Grandmother Diabetes Paternal Grandfather other (sleep [Other]) Father sleep apnea Social History Tobacco Use Smoking status: Never Smokeless tobacco: Never Substance Use Topics Alcohol use: No Drug use: No Review of Systems Respiratory: Positive for cough. Constitutional: (+) fever, (+) chills, (+) body aches, (+) fatigue Head: (+) headache Ears/Nose/Mouth/Throat: (+) sore throat, (+) odynophagia Respiratory: (+) dry cough Objective BP 104/72 Pulse 110 Temp (!) 38.2 ?C (100.8 ?F) Resp 18 Wt 72.9 kg (160 lb 11.5 oz) LMP 02/27/2017 SpO2 98% Physical Exam Vitals and nursing note reviewed. Constitutional: General: She is not in acute distress. Appearance: Normal appearance. She is normal weight. She is not ill-appearing, toxic-appearing or diaphoretic. HENT: Head: Normocephalic and atraumatic. Right Ear: Ear canal and external ear normal. Left Ear: Ear canal and external ear normal. Nose: Nose normal. No congestion or rhinorrhea. Mouth/Throat: Mouth: Mucous membranes are moist. Pharynx: No oropharyngeal exudate or posterior oropharyngeal erythema. Eyes: General: Right eye: No discharge. Left eye: No discharge. Extraocular Movements: Extraocular movements intact. Conjunctiva/sclera: Conjunctivae normal. Pupils: Pupils are equal, round, and reactive to light. Cardiovascular: Rate and Rhythm: Normal rate and regular rhythm. Pulses: Normal pulses. Heart sounds: Normal heart sounds. No murmur heard. No friction rub. Pulmonary: Effort: Pulmonary effort is normal. No respiratory distress. Breath sounds: Normal breath sounds. No stridor. No wheezing, rhonchi or rales. Chest: Chest wall: No tenderness. Abdominal: General: Abdomen is flat. There is no distension. Palpations: Abdomen is soft. There is no mass. Tenderness: There is no abdominal tenderness. There is no right CVA tenderness, left CVA tenderness, guarding or rebound. Hernia: No hernia is present. Musculoskeletal: General: No swelling, tenderness, deformity or signs of injury. Normal range of motion. Cervical back: Normal range of motion and neck supple. No rigidity. Right lower leg: No edema. Left lower leg: No edema. Lymphadenopathy: Cervical: No cervical adenopathy. Skin: General: Skin is warm and dry. Capillary Refill: Capillary refill takes less than 2 seconds. Coloration: Skin is not jaundiced or pale. Findings: No bruising, erythema, lesion or rash. Neurological: General: No focal deficit present. Mental Status: She is alert and oriented to person, place, and time. Cranial Nerves: No cranial nerve deficit. Sensory: No sensory deficit. Motor: No weakness. Coordination: Coordination normal. Gait: Gait normal. Psychiatric: Mood and Affect: Mood normal. Behavior: Behavior normal. Thought Content: Thought content normal. Judgment: Judgment normal. {1. URI, acute (J06.9) 2. Acute pharyngitis, unspecified etiology (J02.9) - Onset of symptoms yesterday, including sore throat, cephalgia, dry cough, fever of (more content not included)... [facility] 08-01-2024 History of Presen t illness Narrative [facility] Subjective Amber Cisneros is a 28 year old female. Patient presents with: Cough: Sore throat, RM, LEMUEL ear issues x 1 day Cough Pharyngitis: - Onset yesterday after caring for her mother, who was ill with a cough. - Severe odynophagia. - Denies taking any OTC medications. Cephalgia: - Onset this morning, described as pressure in the back of the skull. Myalgia: - Generalized body aches, exacerbated by lack of sleep last night. - Works in a [employer], which involves physical labor. Fever and Chills: - Subjective fever and chills noted yesterday. - Temperature recorded at 100.8 F. PAST MEDICAL HISTORY Diagnosis Date NEGATIVE HISTORY OF 10/03/2008 Normal color vision NEGATIVE MEDICAL HISTORY PAST SURGICAL HISTORY Procedure Laterality Date NONE ALLERGIES Feathers and Strawberries MEDICATIONS lithium carbonate (ESKALITH) 150 mg capsule busPIRone (BUSPAR) 15 mg tablet famotidine (PEPCID) 20 mg tablet fexofenadine (ELINOR) 180 mg tablet VENLAFAXINE ER 150 MG TABLET,EXTENDED RELEASE 24 HR Take 1 tablet by mouth once daily. traZODone (DESYREL) 100 mg tablet cholecalciferol, vitamin D3, (VITAMIN D3 ORAL) Take by mouth. semaglutide (WEGOVY SUBCUTANEOUS) Inject subcutaneously. escitalopram oxalate (LEXAPRO) 20 mg tablet Take 1 tablet by mouth once daily. cetirizine (ZYRTEC) 10 mg tablet Take 1 tablet by mouth once daily. guaiFENesin (MUCINEX) 600 mg 12 hr tablet Take 2 tablets by mouth twice daily. (Patient not taking: Reported on 08/01/2024) FAMILY HISTORY Problem Relation Age of Onset Cancer Paternal Grandmother Stroke Paternal Grandfather Heart Paternal Grandfather Heart Maternal Grandmother Stroke Maternal Grandmother Diabetes Paternal Grandfather other (sleep [Other]) Father sleep apnea Social History Tobacco Use Smoking status: Never Smokeless tobacco: Never Substance Use Topics Alcohol use: No Drug use: No Review of Systems Respiratory: Positive for cough. Constitutional: (+) fever, (+) chills, (+) body aches, (+) fatigue Head: (+) headache Ears/Nose/Mouth/Throat: (+) sore throat, (+) odynophagia Respiratory: (+) dry cough Objective BP 104/72 Pulse 110 Temp (!) 38.2 C (100.8 F) Resp 18 Wt 72.9 kg (160 lb 11.5 oz) LMP 02/27/2017 SpO2 98% Physical Exam Vitals and nursing note reviewed. Constitutional: General: She is not in acute distress. Appearance: Normal appearance. She is normal weight. She is not ill-appearing, toxic-appearing or diaphoretic. HENT: Head: Normocephalic and atraumatic. Right Ear: Ear canal and external ear normal. Left Ear: Ear canal and external ear normal. Nose: Nose normal. No congestion or rhinorrhea. Mouth/Throat: Mouth: Mucous membranes are moist. Pharynx: No oropharyngeal exudate or posterior oropharyngeal erythema. Eyes: General: Right eye: No discharge. Left eye: No discharge. Extraocular Movements: Extraocular movements intact. Conjunctiva/sclera: Conjunctivae normal. Pupils: Pupils are equal, round, and reactive to light. Cardiovascular: Rate and Rhythm: Normal rate and regular rhythm. Pulses: Normal pulses. Heart sounds: Normal heart sounds. No murmur heard. No friction rub. Pulmonary: Effort: Pulmonary effort is normal. No respiratory distress. Breath sounds: Normal breath sounds. No stridor. No wheezing, rhonchi or rales. Chest: Chest wall: No tenderness. Abdominal: General: Abdomen is flat. There is no distension. Palpations: Abdomen is soft. There is no mass. Tenderness: There is no abdominal tenderness. There is no right CVA tenderness, left CVA tenderness, guarding or rebound. Hernia: No hernia is present. Musculoskeletal: General: No swelling, tenderness, deformity or signs of injury. Normal range of motion. Cervical back: Normal range of motion and neck supple. No rigidity. Right lower leg: No edema. Left lower leg: No edema. Lymphadenopathy: Cervical: No cervical adenopathy. Skin: General: Skin is warm and dry. Capillary Refill: Capillary refill takes less than 2 seconds. Coloration: Skin is not jaundiced or pale. Findings: No bruising, erythema, lesion or rash. Neurological: General: No focal deficit present. Mental Status: She is alert and oriented to person, place, and time. Cranial Nerves: No cranial nerve deficit. Sensory: No sensory deficit. Motor: No weakness. Coordination: Coordination normal. Gait: Gait normal. Psychiatric: Mood and Affect: Mood normal. Behavior: Behavior normal. Thought Content: Thought content normal. Judgment: Judgment normal. {1. URI, acute (J06.9) 2. Acute pharyngitis, unspecified etiology (J02.9) - Onset of symptoms yesterday, including sore throat, cephalgia, dry cough, fever of 100.8 F, myalgia, and fatigue. - Physical examination reveals pharyngeal erythema and tenderness upon swallowing. - Strep throat test returned negative. - Ordered influenza test; results expected by tomorrow morning. - Provided work note for 08/02. 3. Encounter for screening for COVID-19 (Z11.52) - Ordered COVID-19 swab test; nursing staff to perform swab before patient departure. and Recording using [employer] software for draft documentation of the visit was discussed with the patient/authorized entry level account representative; all questions welcomed and answered. Patient/authorized entry level account representative agreed to proceed MDM Procedures documented in this encounter [facility] 12-27-2022 Discharge summary Note Date/Time December 27, 2022 7:19am [facility] [address] [place] [address]. [address] [place] [address] / REHABILITATION SERVICES DISCHARGE SUMMARY MR#: [id number] Acct: [id number] Name: AMBER CISNEROS Rep #: [id number] : 1995 27 From: Elisha CORNEJO T Referring Dr.: KATHLEEN Camejo Status: REG RCR Insurance: [facility] SELF PAY INSURANCE Patient Information Patient Information: AMBER CISNEROS was seen in my office for initial evaluation on 11/09/22. The following Plan of Care was established for this patient: POC Established Initial Frequency: 2x /Week Initial Duration: 4 Weeks Anticipated Interventions Patient/Client Instruction: Educate patient on: Benefits of Fitness Program Therapeutic Exercise to Include: Strength training, Endurance training, Balance training, Coordination, Agility training, Body mechanics, Postural training, Flexibilty training, Gait and locomotor training, Neuromotor development, Passive ROM, Active ROM, Dynamic Lumbar Stabilization and Scapular Strength/Stabilization For the Purpose of:: To improve muscle performance and motor function Functional Training to Include: Gait training Manual Therapy Techniques to Include: Soft tissue mobilization TENS: Yes Cryotherapy (ice pack, ice massage): Yes Thermo therapy (hot pack): Yes Ultrasound (thermal/non thermal): No Vasopneumatic device: Yes Last Seen Last Seen: This patient was last seen in our office . Pertinent comments regarding their Physical therapy will appear below: Patient has reported that she has started PT elsewhere, appropriate to be d/c At this point I will be discontinuing this patient from physical therapy. I would be happy to see this patient again in the future if found appropriate by the physician. Thank you! Elisha Munson, DUANE Balance/Gait/Functional tests Balance/Special Test Scores Lower Extremity Functional Score: 47 <Electronically signed by Elisha Munson DPT> 12/27/22 0719 CC: KATHLEEN Camejo; [facility] ~ ELR Signed [facility] Work Phone: [phone] 637-555907-28-2023 Discharge summary Author Mo Camejo [facility] September 10, 2022 5:38pm Note Date/Time September 10, 2022 11:2 7am [facility] Medical Records Department [address] [place] [address] Instructions for Home/Discharge Instructions 09/10/22 1125 MR#: [id number] Acct: [id number] Name: AMBER CISNEROS Rep #:[id number] : 1995 26 From: Mo vickers DPM PCP: [facility] atus:[facility] Discharge Instructions Diet Discharge Diet: No restrictions Activity Discharge Activity: May Not Drive, May Shower (Please use cast bag covering to keep dressings clean, dry, and intact to the left foot) and Use Walker (Please use walker to remain nonweightbearing to the left lower extremity) Weight Bearing Status: No weight bearing (Please remain nonweightbearing to leftlower extremity with assistance of walker) Keep extremity elevated above heart level: Left Leg (Please elevate left leg at all times of rest for postoperative edema control) Dressing / Incision Call your doctor if you observe: Fever of 101 or Higher, Shortness of breath, Chest pain, Calf discomfort and Uncontrolled pain Change Dressing in: do not change dressing Remove Dressing in: leave in place till F/U (Leave dressings clean, dry, and intact to the left lower extremity. Physician will change dressing at first postop appointment) Cleanse incision/area with: Do not get Incision Wet and Keep Dressing Clean & Dry Follow Up Care Please Follow Up With: Mo Camejo DPM When: Patient has first postoperative appointment with me in office next week Test Results: Test results from this visit will be discussed in further detail at your follow- up appointment, if applicable. Discharge Plan Admission Attending Provider: Mo Camejo [facility] Orders/Prescriptions Prescriptions: New oxycodone-acetaminophen 5-325 mg tablet 1 tab PO Q8H PRN (Reason: pain) 7 Days Qty: 28 0RF doxycycline hyclate 100 mg capsule 100 mg PO DAILY Qty: 10 0RF aspirin 325 mg tablet 325 mg PO DAILY Qty: 20 0RF No Action buspirone 10 mg tablet 15 mg PO BID Patient Comments: TAKE 1 TABLET BY MOUTH TWICE DAILY famotidine 20 mg tablet 20 mg PO Q12H venlafaxine 37.5 mg capsule,extended release 24hr 75 mg PO DAILY Patient Comments: TAKE 1 CAPSULE BY MOUTH ONCE DAILY doxepin 6 mg tablet 6 mg PO DAILY fexofenadine [Elinor Allergy] 180 mg tablet 180 mg PO DAILY [facility] - Disposition Disposition (needs filled in before D/C Order can be placed): Home, Self Care 09/10/22 1738<Electronically signed by Mo Camejo DPM>Mo Camejo DPM CC: [facility] ~ Signed [facility] Work Phone: Evaluation noteNo assessment information available [facility] Work Phone: Evaluation note* Diagnosis Onset Date Resolution Status [id number] acute Tear of deltoid ligament of left ankle acute [facility] Work Phone: Evaluation note* Diagnosis Onset Date Resolution Status [id number] acute Tear of deltoid ligament of left ankle acute Encounter for pre-employment health screening examination acute [facility] Work Phone: Evaluation note* Diagnosis URI, acute- Primary Acute upper respiratory infections of unspecified site Acute pharyngitis, unspecified etiology Encounter for screening for COVID-19 documented in this encounter [facility] Discharge instructions Additional Instructions [facility]: Chief Complaint and Reason for Visit Chief Complaint FALL Chief Complaint FALL Reason for Visit [id number] Tear of deltoid ligament of left ankle Chief Complaint FALL PE NON DOT PHYSICAL/ [place] ORDER ANKLE FX RX HERE Reason for Visit [id number] Tear of deltoid ligament of left ankle Encounter for pre-employment health screening examination Advance Directives No Advanced Directives Records Found Advance Directive Response Recorded Date/ Time Living Will No September 08, 2022 1:45pm Power of Environmental Project Manager No September 08 1:45pm Advance Directive Response Recorded Date/ Time Living Will No September 08, 2022 12:45pm Power of Environmental Project Manager No September 08 12:45pm Summary Purpose Family History No Family History Records FoundNo Family History Records Found Additional Source Comments Care Teams (unrecognized sec tion and content) Team Status: Active Member Role Status Dates [facility] Family Provider Active [facility] Primary Care Provider A ctive Team Status: Inactive Member Role Status Dates [facility] Primary Care Provider A ctive Dr. Anil Kumari MD Attending Provider, Emergency Pro vider Active Team Status: Inactive Member Role Status Dates [facility] Primary Care Provider A ctive Dr. Mo Camejo , CHANTAL[place] Attending Provider, Referri ng Provider Active Team Status: Active Member Role Status Dates [facility] Primary C are Provider, Attending Provider, Referring Provider Active Janet Ballesteros ROAD MECHANIC, ROAD MECHANIC-C Other Provider Active Team Status: Inactive Member Role Status Dates [facility] Primary C are Provider, Attending Provider, Referring Provider Active Janet Ballesteros ROAD MECHANIC, ROAD MECHANIC-C Other Provider Active Team Status: Inactive Member Role Status Dates [facility] Primary Care Provider, Referring Provider Active FORREST Fitch Attending Provider Active Team Status: Inactive Member Role Status Dates [facility] Primary Care Provider A ctive FORREST Fitch Attending Provider Active Team Status: Active Member Role Status Dates [facility] Primary Care Provider A ctive Dr. Mo Camejo DPM Attending Provider, Referri ng Provider Active [employer] Relationship Specialty Start Date End Date Janet Ballesteros NP [address] [place] [id number] PCP - General Family Medicine 08/01/24 [employer]ager Relationship Specialty Start Date End Date Janet Ballesteros NP [address] [place] [id number] PCP - General Family Medicine 08/01/24 Source Comments (unrecognize d section and content) In the event this informatio n is protected by the Federal Confidentiality of Alcohol and Drug Abuse Patient Records regulations: The Federal rules restrict any use of the information to criminally investigate or prosecute any alcohol or drug abuse patient.[facility] the event this information is protected by the Federal Confidentiality of Alcohol and Drug Abuse Patient Records regulations: The Federal rules restrict any use of the information to criminally investigate or prosecute any alcohol or drug abuse patient.[facility] Reason for Visit (unrecogniz ed section and content) Reason Comments Cough Sore throat, RM, LEMUEL ear issues x 1 day INFORMATION SOURCE (unrecogn ized section and content) DATE CREATED AUTHOR 08/05/2024 [facility] DATE CREATED AUTHOR 'S ANNALISE CORONA 12/24/2024 [facility] FOR RECORDS PERTAINING TO PATIENTS WHO ARE OR HAVE BEEN ENROLLED IN A CHEMICAL DEPENDENCY/SUBSTANCEABUSE PROGRAM, SOME INFORMATION MAY BE OMITTED. This clinical summary was aggregated from multiple sources. Caution should be exercised in using it in the provision of clinical care. This summary normalizes information from multiple sources, and as a consequence, information in this document may materially change the coding, format and clinical context of patient data. In addition, data may be omitted in some cases. CLINICAL DECISIONS SHOULD BE BASED ON THE PRIMARY CLINICAL RECORDS. [employer] [facility]. provides no warranty or guarantee of the accuracy or completeness of information in this document.
[2025-01-11 08:54] VITALS: BP 112/76; PULSE 86; RESP 12; TEMP 36.6; O2SAT 100
== END 2025-01-11 09:07 | disposition home or self-care (01) ==
PROVIDERS: Emergency Provider Emergency Medicine; PCP Nurse Practitioner Family; Visit Provider Emergency Medicine
DX: S93.401A Sprain of unspecified ligament of right ankle, initial encounter (principal); F41.9 Anxiety disorder, unspecified; X58.XXXA Exposure to other specified factors, initial encounter
CPT/HCPCS: 73610; 99282